=== PATIENT | male | born 1960 | race Two or more races ===

== ENCOUNTER 2020-09-25 14:25 | Inpatient (IN) | payer BC, SELFPAY ==
[~2020-09-25] VITALS: Ht 172.7 cm; Wt 71.7 kg
[2020-09-25] MEDS ORDERED: GLUCAGON INJ 1MG VIAL SC PRN (15:35)
[2020-09-25] MEDS ORDERED: GLUCOSE 4GM CHEW TABLET PO PRN (15:35)
[2020-09-25] MEDS ORDERED: PIPERACILLIN/TAZOBACTAM SOD 4.5 GM in D5W MINI-BAG PLUS 50 ML IV SCH (15:35)
[2020-09-25] MEDS ORDERED: DEXTROSE 50% 50 ML SYRINGE IV PRN (15:35)
[2020-09-25 16:00] VITALS: BP 160/88
[2020-09-25] MEDS ORDERED: CLIN300C6 PO (16:26)
[2020-09-25] MEDS ORDERED: METF500T13 PO (16:26)
[2020-09-25 16:33] VITALS: BP 160/88
[2020-09-25 16:56] LABS: BASO # 0.1 10^3/uL (0.0-0.2); BASO % 0.7 % (0.0-1.0); EOS # 0.1 10^3/uL (0.0-0.5); EOS % 0.8 % (0.0-3.0); HEMATOCRIT 42.5 % (42.0-52.0); HEMOGLOBIN 14.4 g/dl (13.5-17.5); LYMPH % 18.8 % (24.0-44.0); MEAN CORPUSCULAR HEMOGLOBIN 32.7 pg (27.0-33.0); MEAN CORPUSCULAR HGB CONC 33.9 g/dl (32.0-36.5); MEAN CORPUSCULAR VOLUME 96.6 fl (80.0-96.0); MONO # 0.8 10^3/uL (0.0-0.8); MONO % 7.8 % (2.0-8.0); NEUTROPHILS # 7.7 10^3/uL (1.5-8.5); NEUTROPHILS % 71.4 % (36.0-66.0); PLATELET COUNT, AUTOMATED 163 10^3/uL (150-450); WHITE BLOOD COUNT 10.8 10^3/uL (4.0-10.0)
--- NOTE | 2020-09-25 16:58 | HPEPDOC ---
[facility] Medical History & Physical Date of Admission Sep 25, 2020 Date of Service: Sep 25, 2020 Attending Physician: THUAN SARAH MD History and Physical CHIEF COMPLAINT: Transfer from [facility] with perianal abscess for surgical evaluation by Dr. Noriega HISTORY OF PRESENT ILLNESS: 59 yo M with DM2 on metformin, alcohol use disorder, who presented to [facility] intoxicated reporting recent heavy alcohol use, poor PO, continued use of his metformin with a chief complaint of anal pain. He actually presented to [place] ED yesterday and a CT showed a 1.2cm L perianal abscess but at the time declined admission and was prescribed PO clindmycin and then he represented today for worsening pain. On evaluation at [facility] his most notable labs were a lactic acidosis to 6.1, WBC 12.7, glucose 238, bicarb of 19 with a normal anion gap, Cr of 0.5, elevated EtOH, Hgb 14.8, platelets 182 and Covid-19 was negative. He was given 1L NS bolus and started on fluids at 250cc/hr and his alcohol level was still elevated despite last drink reportedly being yesterday night. [facility] requested surgical evaluation and spoke with Dr. Noriega who accepted his transfer to [facility] under internal medicine with surgical consult and will evaluate him tomorrow morning. In the meantime, he will be admitted to medicine and started on antibiotics, fluid resuscitation and CIWA protocol. On arrival he was hemodynamically stable, afebrile and breathing comfortably on room air. He appeared comfortable but mildly restless and complained of some anal pain. He denied recent fevers, chills, anal bleeding, discharge, diarrhea, constipation, abdominal pain, chest pain, palpitations, cough, dyspnea, nausea or emesis. PAST MEDICAL HISTORY: DM Alcohol use disorder PAST SURGICAL HISTORY: None SOCIAL HISTORY: Marital status: single Tobacco use: chronic smoker ETOH: excessive with dependence history Illicit drug use: denies FAMILY HISTORY: Father - from colon CA Mother - living, has COPD Brother - CAD s/p 5 recent stents Brother - DM ALLERGIES: Please see below. REVIEW OF SYSTEMS: 10 point ROS was completed and otherwise negative except as noted in the HPI. HOME MEDICATIONS: Please see below. PHYSICAL EXAMINATION: VITAL SIGNS: HDS, afebrile, breathing comfortably on room air and saturating well, see below for details GENERAL APPEARANCE: NAD, flushed face, mildly tremulous HEENT: NCAT, EOMI, PERRLA, dry MM CARDIOVASCULAR: Regular rhythm, tachycardic, no m/r/g LUNGS: CTAB ABDOMEN: Normoactive bowel sounds, soft, NTND, protuberant EXTREMITIES: WWP, no LE edema NEUROLOGICAL: CN 2-12 intact, moving all extremities spontaneously, mildly tremulous PSYCHIATRIC: AOx3, appears mildly restless SKIN: flushed face, erythematous groin with mildly swollen testicles and noted small firm bump on L anal border : Tender erythematous groin with mildly swollen testicles and noted small firm bump on L anal border LABORATORY DATA: Pending admission labs IMAGIN/[address] [place] [address] MICROBIOLOGY: Please see below. ASSESSMENT: 59 yo M with DM2 on metformin, alcohol use disorder, who presented to [facility] intoxicated reporting recent heavy alcohol use, poor PO, continued use of his metformin with a chief complaint of anal pain and a CT showed a perianal abscess who is being admitted as a direct transfer from [place] for surgical evaluation as well as medical management of possible sepsis, dehydration with lactic acidosis and impending alcohol withdrawal. Perianal abscess: -s/p clindamycin at [place] -Start empiric IV vanc and cipro. MRSA swab -Consult surgery, Dr. Noriega aware of transfer -pain management with tylenol PRN and may add morphine PRN depending on degree of pain reported Lactic acidosis: 2/2 combination of alcohol, dehydration and metformin use -s/p IVF boluses at [facility] -continue NS at 250cc/hr -recheck lactate Q4H +SIRS: likely driven by alcohol intoxication/withdrawal with dehydration more than he is in florid sepsis. Tachycardic, leukocytosis with lactic acidosis -BCx x 2 -UA with UCx -empiric vanc/piptazo given known perianal abscess -CIWA for alcohol withdrawal -hydration with fluids at 250cc/hr DM: -hold metformin -SSI AC/HS -FSBG AC/HS -hypoglycemia protocol DVT ppx: heparin Home Medications Scheduled Clindamycin HCl (Clindamycin HCl) 300 Mg Capsule, 300 MG PO TID Metformin HCl (Metformin HCl) 500 Mg Tablet, 500 MG PO BID A-FIB/CHADSVASC A-FIB History Current/History of A-Fib/PAF?: No Current PO Anticoag Therapy: No Age/Risk Factor Scoring CHADSVASC: CHADSVASC Response (Comments) Value Age Risk Factor Age < 65 years old 0 Gender Risk Factor Male 0 Hx of CHF No 0 Hx of HTN No 0 Hx of Stroke/TIA/or VTE No 0 Hx of Diabetes Yes 1 Hx of Vascular Disease No 0 Total 1 Treatment Treatment ordered: NONE Reason Anticoagulant not given: Not indicated/[id number] THUAN SARAH MD Sep 25, 2020 16:16
[2020-09-25 17:19] LABS: ALBUMIN 3.3 GM/DL (3.2-5.2); ALT/SGPT 25 U/L (12-78); BILIRUBIN,TOTAL 0.6 MG/DL (0.2-1.0); BLOOD UREA NITROGEN 8 MG/DL (7-18); CARBON DIOXIDE LEVEL 22 MEQ/L (21-32); CHLORIDE LEVEL 105 MEQ/L (98-107); CREATININE FOR GFR 0.61 MG/DL (0.70-1.30); GLOMERULAR FILTRATION RATE > 60.0 (>49); GLUCOSE, FASTING 144 MG/DL (70-100); POTASSIUM SERUM 3.5 MEQ/L (3.5-5.1); SODIUM LEVEL 139 MEQ/L (136-145); TOTAL PROTEIN 6.9 GM/DL (6.4-8.2)
[2020-09-25 17:23] LABS: INR 1.01; PROTHROMBIN TIME 13.5 SECONDS (12.5-14.3)
[2020-09-25 17:33] LABS: ABG BASE EXCESS -1.6 (-2.0-2.0); ABG HCO3 21.1 MEQ/L (22.0-26.0); ABG O2 SATURATION 97.1 % (95.0-99.0); ABG PARTIAL PRESSURE CO2 30.4 mmHg (35.0-45.0); ABG PARTIAL PRESSURE O2 82.3 mmHg (75.0-100.0); ABG STANDARD HCO3 23.1 MEQ/L (22.0-26.0); ABG pH (ARTERIAL) 7.459 UNITS (7.350-7.450)
[2020-09-25] MEDS: FOLIC ACID 1 MG TAB PO SCH (17:33)
[2020-09-25] MEDS: MULTIVITAMINS/MINERALS THERAP 1 TAB PO SCH (17:33)
[2020-09-25] MEDS: CIPROFLOXACIN 400 MG in IV 1 EA IV SCH (17:33)
[2020-09-25] MEDS: ACETAMINOPHEN TAB 650MG DOSE (2X325MG) PO PRN (17:33)
[2020-09-25] MEDS: NS 1,000 ML IV SCH ×2 (17:34→21:21)
[2020-09-25] MEDS: LORazepam 2 MG TAB PO PRN (17:45)
[2020-09-25] MEDS: HumaLOG INSULIN (NovoLOG) PER UNIT SC SCH ×2 (18:05→21:17)
[2020-09-25] MEDS: VANCOMYCIN HCL 1,000 MG, VIAL MATE ADAPTER 1 EACH in NS 250 ML IV SCH (18:41)
[2020-09-25] MEDS: MORPHINE 2 MG/ML 1ML VIAL (J2270) IV PRN (18:48)
[2020-09-25 19:45] VITALS: BP 137/74
[2020-09-25] MEDS: THIAMINE 100 MG TAB PO SCH (21:16)
[2020-09-25] MEDS: HEPARIN SOD (PORCINE) 5000UNITS/ML 1ML VIAL/SYRINGE SC SCH (21:17)
[2020-09-25 22:00] VITALS: BP 135/66
[2020-09-25 22:03] VITALS: BP 150/81
[2020-09-26] VITALS (9 sets, daily range): BP systolic 134–167; BP diastolic 64–90
[2020-09-26] MEDS: NS 1,000 ML IV SCH ×2 (00:30→04:26)
--- NOTE | 2020-09-26 00:58 | ECGEPIP ---
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
[2020-09-26] MEDS: MORPHINE 2 MG/ML 1ML VIAL (J2270) IV PRN ×2 (01:34→12:24)
[2020-09-26] MEDS: CIPROFLOXACIN 400 MG in IV 1 EA IV SCH ×2 (04:26→16:13)
[2020-09-26] MEDS: VANCOMYCIN HCL 1,000 MG, VIAL MATE ADAPTER 1 EACH in NS 250 ML IV SCH ×2 (05:43→18:41)
[2020-09-26 05:51] LABS: HEMATOCRIT 38.8 % (42.0-52.0); HEMOGLOBIN 13.1 g/dl (13.5-17.5); MEAN CORPUSCULAR HEMOGLOBIN 32.9 pg (27.0-33.0); MEAN CORPUSCULAR HGB CONC 33.8 g/dl (32.0-36.5); MEAN CORPUSCULAR VOLUME 97.5 fl (80.0-96.0); PLATELET COUNT, AUTOMATED 148 10^3/uL (150-450); RED BLOOD COUNT 3.98 10^6/uL (4.30-6.10); WHITE BLOOD COUNT 9.5 10^3/uL (4.0-10.0)
[2020-09-26 06:20] LABS: BLOOD UREA NITROGEN 7 MG/DL (7-18); CALCIUM LEVEL 7.6 MG/DL (8.8-10.2); CARBON DIOXIDE LEVEL 24 MEQ/L (21-32); CHLORIDE LEVEL 106 MEQ/L (98-107); CREATININE FOR GFR 0.59 MG/DL (0.70-1.30); GLOMERULAR FILTRATION RATE > 60.0 (>49); GLUCOSE, FASTING 241 MG/DL (70-100); MAGNESIUM LEVEL 1.6 MG/DL (1.8-2.4); POTASSIUM SERUM 3.6 MEQ/L (3.5-5.1); SODIUM LEVEL 136 MEQ/L (136-145)
[2020-09-26] MEDS ORDERED: FLUBLOK(EGG FREE)(QUAD)INFLUENZA VACC 0.5ML SYRINGE 18YRS & OLDER IM ONE (09:00)
[2020-09-26] MEDS ORDERED: MAG SULF 1GM/100ML (MAG RUN) 1 GM in IV 1 EA IV ONE (09:00)
[2020-09-26] MEDS ORDERED: LIDOCAINE 1% MDV 20ML VIAL As Ordered ONE (09:20)
[2020-09-26] MEDS ORDERED: LIDOCAINE 1% MDV 20ML VIAL SC ONE (09:30)
--- NOTE | 2020-09-26 09:36 | IPNPDOC ---
Text Note Date of Service The patient was seen on 09/26/20. NOTE SUBJECTIVE: -No acute complaints this morning -Perianal pain well controlled OBJECTIVE: VITAL SIGNS: HDS, afebrile, see below for details GENERAL APPEARANCE: NAD HEENT: NCAT, EOMI, PERRLA, dry MM CARDIOVASCULAR: RRR, no m/r/g LUNGS: CTAB ABDOMEN: Normoactive bowel sounds, soft, NTND, protuberant EXTREMITIES: WWP, no LE edema NEUROLOGICAL: CN 2-12 intact, moving all extremities spontaneously, no tremor noted PSYCHIATRIC: AOx3 SKIN: Mildly erythematous groin with and noted small firm bump on L perianal border LABORATORY DATA: reviewed WBC 9.5 Hgb 13.1 platelets 148 Na 136 K 3.6 Mag 1.6 (repleted) Cr 0.59 IMAGIN/[address] [place] [address] MICROBIOLOGY: Please see below. ASSESSMENT: 59 yo M with DM2 on metformin, alcohol use disorder, who presented to [facility] intoxicated reporting recent heavy alcohol use, poor PO, continued use of his metformin with a chief complaint of anal pain and a CT showed a perianal abscess who is being admitted as a direct transfer from [place] for surgical evaluation as well as medical management of possible sepsis, dehydration with lactic acidosis and impending alcohol withdrawal. Perianal abscess: -s/p clindamycin at [place] -Continue empiric IV vanc and cipro. -Consulted surgery, Dr. Noriega will see this morning -pain management with tylenol PRN and morphine PRN for severe pain Lactic acidosis: 2/2 combination of alcohol, dehydration and metformin use. No evidence of bakari sepsis. Resolved after IV fluids hydration. -s/p IVF boluses at [place] -Discontinue NS at 250cc/hr +SIRS: likely driven by alcohol intoxication/withdrawal with dehydration more than he is in florid sepsis. Tachycardic, leukocytosis with lactic acidosis, resolved. -BCx x 2, NGTD -UA bland -empiric vanc/piptazo given known perianal abscess -CIWA for alcohol withdrawal -s/p hydration DM: -hold metformin -SSI AC/HS -FSBG AC/HS -hypoglycemia protocol DVT ppx: heparin VS,Fishbone, I+O VS, Fishbone, I+O Laboratory Tests 09/25/20 16:38 09/26/20 05:37 Vital Signs Date Time Temp Pulse Resp B/P (MAP) Pulse Ox O2 Delivery O2 Flow Rate FiO2 09/26/20 06:00 99.6 72 20 153/78 (103) 96 Room Air I&O- Last 24 Hours up to 6 AM 09/26/20 06:00 Intake Total 3875 ml Output Total 500 ml Balance 3375 ml THUAN SARAH MD Sep 26, 2020 07:45
[2020-09-26] MEDS: LORazepam 2 MG TAB PO PRN ×3 (09:45→19:09)
[2020-09-26] MEDS: HEPARIN SOD (PORCINE) 5000UNITS/ML 1ML VIAL/SYRINGE SC SCH ×2 (09:56→20:47)
[2020-09-26] MEDS: HumaLOG INSULIN (NovoLOG) PER UNIT SC SCH ×4 (09:56→20:47)
[2020-09-26] MEDS: THIAMINE 100 MG TAB PO SCH ×2 (09:56→20:47)
[2020-09-26] MEDS: MULTIVITAMINS/MINERALS THERAP 1 TAB PO SCH (09:56)
[2020-09-26] MEDS: FOLIC ACID 1 MG TAB PO SCH (09:56)
--- NOTE | 2020-09-26 13:37 | CR ---
CONSULTATION DATE: 09/26/2020 REASON FOR CONSULTATION: Perianal abscess. HISTORY OF PRESENT ILLNESS: The patient is a 59-year-old male who was at [facility] on Sunday, diagnosed with a small perianal abscess, given the option for admission for IV antibiotics and he refused. He went home. He came back in again yesterday and complained of the pain and swelling getting worse. They did not have a surgeon available, so he was transferred here for surgical evaluation. He was admitted to the hospital for service overnight. I saw him this morning. He says that the pain is getting worse. He feels like the swelling is going up inside of his scrotum. No nausea or vomiting, no fevers or chills. He has never had any abscess like this in the past. PAST MEDICAL HISTORY: 1. Diabetes. 2. Alcohol abuse. PAST SURGICAL HISTORY: None. SOCIAL HISTORY: Denies drug, tobacco abuse, does drink excessive alcohol with dependent history. FAMILY HISTORY: Noncontributory. ALLERGIES: PENICILLIN AND ASPIRIN. HOME MEDICATIONS: Please see med rec. REVIEW OF SYSTEMS: Pertinent positives and negatives as stated in history of present illness. PHYSICAL EXAMINATION: General: Alert and oriented times 3, in no acute distress. Vital signs: Temperature 99.6, pulse 92, respirations 20, blood pressure 153/78, pulse oximetry 96% on room air. HEENT: Pupils equal, round and reactive to light and accommodation. Heart: S1, S2 regular rate and rhythm. Lungs: Clear to auscultation bilaterally. Abdomen: Soft, nontender, non-distended. Perianal examination: There is diffuse swelling in the perineum heading up into the base of the scrotum mostly on the left side. He had a slightly raised area on the left side of the buttock of the base of the scrotum, erythematous, no fluctuance or obvious drainage. Extremities: No clubbing, cyanosis or edema. LABORATORY DATA: White count 10.8 yesterday, 9.5 this morning, hemoglobin 13.1, platelets 148, potassium 3.6, creatinine 0.59, lactic acid 1.7, fasting glucose 241, magnesium 1.6. ASSESSMENT AND PLAN: The patient is a 59-year-old male with a perianal and perineal abscess. Recommendation at this time is to attempt bedside incision and drainage. Risks and benefits of the procedure are not limited to, but included bleeding, infection, damage to surrounding structures and need for further procedure were discussed in detail with the patient. He understands and signed consent and then the procedure was performed from the bedside. Please see the procedure note for that report. Will keep a dry dressing in place for now and I will reevaluate in the morning for further recommendations.
--- NOTE | 2020-09-26 17:57 | RO ---
OPERATIVE NOTE DATE OF OPERATION: PREOPERATIVE DIAGNOSIS: Perianal abscess. POSTOPERATIVE DIAGNOSIS: Perianal abscess. PROCEDURE: Bedside incision and drainage of perianal abscess. SURGEON: Carlos Manuel Noriega DO BLOOD BANK TECHNICIAN: None. ANESTHESIA: 10 mL of 1% lidocaine local. COMPLICATIONS: None. INDICATIONS FOR PROCEDURE: The patient is a 59-year-old male who presents with a history of a perianal abscess for the past four days, getting progressively worse on its own, has failed outpatient treatment with antibiotics. Recommendations at this time is to proceed with a bedside I&D. Risks and benefits of the procedure are not limited to but include bleeding, infection, damage to surrounding structures, need for further surgery were discussed in detail to the patient. Informed consent was obtained and procedure is planned. DESCRIPTION OF PROCEDURE: The patient's perianal area was sterilely prepped and draped with Betadine at the bedside. Next, the skin and subcutaneous tissue surrounding the most raised, fluctuant portion of it was injected with the local. Next, a 15 blade scalpel was used to make about a 1 cm incision. Once that was completed, I was able to probe the incision with a cotton-tipped applicator. There were a couple small drops of purulent fluid that came out but that was it. There were no large fluid collections and no obvious tracking anywhere underneath the skin. The wound was then covered with some dry gauze, thus ending the procedure. I advised him to keep some pressure on it for about an hour to help stop the bleeding. I will then evaluate him in the morning to see if he is improving with further recommendations to follow. PARVEZ
[2020-09-26] MEDS: ACETAMINOPHEN TAB 650MG DOSE (2X325MG) PO PRN (19:03)
[2020-09-27] VITALS (7 sets, daily range): BP systolic 140–161; BP diastolic 2–84
[2020-09-27] MEDS: ACETAMINOPHEN TAB 650MG DOSE (2X325MG) PO PRN ×2 (03:30→20:38)
[2020-09-27] MEDS: CIPROFLOXACIN 400 MG in IV 1 EA IV SCH ×2 (04:06→17:20)
[2020-09-27 05:38] LABS: HEMATOCRIT 38.1 % (42.0-52.0); HEMOGLOBIN 13.2 g/dl (13.5-17.5); MEAN CORPUSCULAR HEMOGLOBIN 32.8 pg (27.0-33.0); MEAN CORPUSCULAR HGB CONC 34.6 g/dl (32.0-36.5); MEAN CORPUSCULAR VOLUME 94.5 fl (80.0-96.0); PLATELET COUNT, AUTOMATED 142 10^3/uL (150-450); RED BLOOD COUNT 4.03 10^6/uL (4.30-6.10); WHITE BLOOD COUNT 11.4 10^3/uL (4.0-10.0)
[2020-09-27 05:56] LABS: BLOOD UREA NITROGEN 4 MG/DL (7-18); CALCIUM LEVEL 8.2 MG/DL (8.8-10.2); CARBON DIOXIDE LEVEL 22 MEQ/L (21-32); CHLORIDE LEVEL 104 MEQ/L (98-107); CREATININE FOR GFR 0.58 MG/DL (0.70-1.30); GLOMERULAR FILTRATION RATE > 60.0 (>49); GLUCOSE, FASTING 195 MG/DL (70-100); POTASSIUM SERUM 3.4 MEQ/L (3.5-5.1); SODIUM LEVEL 136 MEQ/L (136-145); VANCOMYCIN LEVEL TROUGH 6.5 UG/ML (10.0-20.0)
[2020-09-27] MEDS: VANCOMYCIN HCL 1,000 MG, VIAL MATE ADAPTER 1 EACH in NS 250 ML IV SCH (05:56)
[2020-09-27] MEDS ORDERED: VANCOMYCIN HCL 1,000 MG, VIAL MATE ADAPTER 1 EACH in NS 250 ML IV SCH ×2 (06:00→14:00)
[2020-09-27] MEDS ORDERED: MAG SULF 1GM/100ML (MAG RUN) 1 GM in IV 1 EA IV ONE (07:40)
[2020-09-27] MEDS: FOLIC ACID 1 MG TAB PO SCH (08:33)
[2020-09-27] MEDS: THIAMINE 100 MG TAB PO SCH ×2 (08:33→20:38)
[2020-09-27] MEDS: MULTIVITAMINS/MINERALS THERAP 1 TAB PO SCH (08:33)
[2020-09-27] MEDS: PERCOCET 5MG/325MG TAB PO PRN ×2 (08:33→14:28)
[2020-09-27] MEDS: HumaLOG INSULIN (NovoLOG) PER UNIT SC SCH ×4 (08:34→20:31)
[2020-09-27] MEDS: HEPARIN SOD (PORCINE) 5000UNITS/ML 1ML VIAL/SYRINGE SC SCH ×2 (08:34→20:38)
[2020-09-27] MEDS ORDERED: VANCOMYCIN HCL 500 MG in D5W MINI-BAG PLUS 100 ML IV ONE (09:00)
--- NOTE | 2020-09-27 10:07 | IPNPDOC ---
Text Note Date of Service The patient was seen on 09/27/20. NOTE Gen. surgery. Dr. Noriega. The patient is a 59-year-old male with renal abscess status post incision and drainage as per Dr. Noriega 09/26/20. This morning, the patient is resting in bed. He states the area is still painful but somewhat improved compared with yesterday. MAXIMUM TEMPERATURE 102.8 Heart rate 87, respiratory rate 20, blood pressure 143/83, 94% room air. Awake and alert. Lungs clear to auscultation anteriorly S1 and S2 regular rate and rhythm Abdomen flat soft and nontender Extremities well-perfused with no edema. Labs this a.m. indicate WBC 11.4, increased slightly hemoglobin 13.2 stable Platelets 142 Culture 2 negative for 24 hours. Blood culture 1 09/26 pending. Assessment/plan Anal abscess status post incision and drainage as per Dr. Noriega 09/26/20. Only a couple of small drops. Fluid, no large fluid collections at time of drainage. No obvious tracking. Continue dry dressing. IV Cipro/Flagyl. Dr. Noriega to examine further, further recommendations pending his review. VS,Fishbone, I+O VS, Fishbone, I+O Laboratory Tests 09/27/20 05:23 Vital Signs Date Time Temp Pulse Resp B/P (MAP) Pulse Ox O2 Delivery O2 Flow Rate FiO2 09/27/20 08:39 85 140/2 09/27/20 08:33 18 09/27/20 06:00 99.3 94 Room Air I&O- Last 24 Hours up to 6 AM 09/27/20 06:00 Intake Total 1260 ml Output Total 1200 ml Balance 60 ml Rosalinda Alvarado Sep 27, 2020 10:07
--- NOTE | 2020-09-27 10:43 | IPNPDOC ---
Text Note Date of Service The patient was seen on 09/27/20. NOTE SUBJECTIVE: -Fever overnight, also with active CIWAs -had bedside I&D with Dr. Noriega on 09/26/2020 without much output OBJECTIVE: VITAL SIGNS: HDS, afebrile, see below for details GENERAL APPEARANCE: NAD HEENT: NCAT, EOMI, PERRLA, dry MM CARDIOVASCULAR: RRR, no m/r/g LUNGS: CTAB ABDOMEN: Normoactive bowel sounds, soft, NTND, protuberant EXTREMITIES: WWP, no LE edema NEUROLOGICAL: CN 2-12 intact, moving all extremities spontaneously, no tremor noted PSYCHIATRIC: AOx3 : Worsened scrotal edema with erythema, continues to have 1cm bump on L perianal border. LABORATORY DATA: reviewed WBC 11.4 IMAGIN/[address] [place] [address] MICROBIOLOGY: Please see below. ASSESSMENT: 59 yo M with DM2 on metformin, alcohol use disorder, who presented to [facility] intoxicated reporting recent heavy alcohol use, poor PO, continued use of his metformin with a chief complaint of anal pain and a CT showed a perianal abscess who is being admitted as a direct transfer from [place] for surgical evaluation as well as medical management of possible sepsis, dehydration with lactic acidosis and alcohol withdrawal. Perianal abscess: -s/p clindamycin at [place] -Continue empiric IV vanc and cipro, day 3, add flagyl -Consulted surgery, Dr. Noriega performed bedside I&D on 09/26 -pain management with tylenol PRN for mild pain and Percocet PRN for severe pain Lactic acidosis: 2/2 combination of alcohol, dehydration and metformin use. No evidence of bakari sepsis. Resolved after IV fluids hydration. -s/p IVF boluses at [place] -s/p fluids +SIRS: likely driven by alcohol intoxication/withdrawal with dehydration more than he was in florid sepsis. However now had fevers overnight, redrew BCx, continued vanc/cipro -BCx x 2, NGTD -UA bland -Continue empiric vanc/cipro given known perianal abscess -CIWA for alcohol withdrawal -s/p hydration DM: -hold metformin -SSI AC/HS -FSBG AC/HS -hypoglycemia protocol DVT ppx: heparin VS,Fishbone, I+O VS, Fishbone, I+O Laboratory Tests 09/27/20 05:23 Vital Signs Date Time Temp Pulse Resp B/P (MAP) Pulse Ox O2 Delivery O2 Flow Rate FiO2 09/27/20 06:00 99.3 87 20 143/83 (103) 94 Room Air I&O- Last 24 Hours up to 6 AM 09/27/20 06:00 Intake Total 1260 ml Output Total 1200 ml Balance 60 ml THUAN SARAH MD Sep 27, 2020 07:44
[2020-09-27] MEDS ORDERED: POTASSIUM CHLORIDE 10 MEQ SR TABLET PO ONE (11:00)
[2020-09-27] MEDS: metroNIDAZOLE 500 MG in IV 1 EA IV SCH ×2 (12:31→20:38)
[2020-09-28] VITALS (8 sets, daily range): BP systolic 125–159; BP diastolic 68–81
[2020-09-28] MEDS: metroNIDAZOLE 500 MG in IV 1 EA IV SCH ×3 (04:20→21:08)
[2020-09-28] MEDS: PERCOCET 5MG/325MG TAB PO PRN ×3 (04:22→19:07)
[2020-09-28] MEDS: CIPROFLOXACIN 400 MG in IV 1 EA IV SCH ×2 (05:41→19:00)
[2020-09-28 06:24] LABS: HEMOGLOBIN 13.4 g/dl (13.5-17.5); MEAN CORPUSCULAR HGB CONC 34.4 g/dl (32.0-36.5); MEAN CORPUSCULAR VOLUME 96.1 fl (80.0-96.0); PLATELET COUNT, AUTOMATED 143 10^3/uL (150-450); RED BLOOD COUNT 4.06 10^6/uL (4.30-6.10); WHITE BLOOD COUNT 11.8 10^3/uL (4.0-10.0)
[2020-09-28 06:52] LABS: BLOOD UREA NITROGEN 5 MG/DL (7-18); CALCIUM LEVEL 8.2 MG/DL (8.8-10.2); CARBON DIOXIDE LEVEL 24 MEQ/L (21-32); CHLORIDE LEVEL 104 MEQ/L (98-107); CREATININE FOR GFR 0.55 MG/DL (0.70-1.30); GLOMERULAR FILTRATION RATE > 60.0 (>49); GLUCOSE, FASTING 153 MG/DL (70-100); POTASSIUM SERUM 3.8 MEQ/L (3.5-5.1); SODIUM LEVEL 136 MEQ/L (136-145)
[2020-09-28] MEDS: FOLIC ACID 1 MG TAB PO SCH (08:07)
[2020-09-28] MEDS: MULTIVITAMINS/MINERALS THERAP 1 TAB PO SCH (08:07)
[2020-09-28] MEDS: HEPARIN SOD (PORCINE) 5000UNITS/ML 1ML VIAL/SYRINGE SC SCH (08:07)
[2020-09-28] MEDS: THIAMINE 100 MG TAB PO SCH (08:07)
[2020-09-28] MEDS: HumaLOG INSULIN (NovoLOG) PER UNIT SC SCH ×4 (08:09→20:16)
--- NOTE | 2020-09-28 13:17 | IPNPDOC ---
Text Note Date of Service The patient was seen on 09/28/20. NOTE No acute events overnight. He feels like the pain and swelling are still getting worse. Labs and vitals are stable. VSSAF NAD perineum - there is swelling and erythema in the perineum extending into the scrotum. No signs of any fluctuance or drainage. labs - below A) 59y/o male with perineal abscess s/p bedside I+D. P) reg diet abx possible urology consult US pending will follow David Noriega DO VS,Aditya, I+O VS, Fishbone, I+O Laboratory Tests 09/28/20 06:00 Vital Signs Date Time Temp Pulse Resp B/P (MAP) Pulse Ox O2 Delivery O2 Flow Rate FiO2 09/28/20 12:13 18 09/28/20 06:00 99.6 81 135/73 (93) 95 Room Air I&O- Last 24 Hours up to 6 AM 09/28/20 06:00 Intake Total 1450 ml Output Total 1675 ml Balance -225 ml RADHA NORIEGA DO Sep 28, 2020 13:17
--- NOTE | 2020-09-28 13:18 | REP ---
INDICATION: scrotum and perineum for abscess fluid collection?. Perianal abscess, scrotal pain. COMPARISON: None. TECHNIQUE: Bilateral high-resolution scrotal sonography. FINDINGS: Bilateral scrotal parenchyma is homogeneous. No intratesticular mass lesion is seen on either side. Right testis measures 3.9 x 2.0 x 2.4 cm. Left testicular dimensions are 4.2 x 2.0 x 2.5 cm. There are tiny right epididymal cyst head cyst is seen. The left spermatic cord is somewhat hyperemic and hyperechoic consistent with inflammation. There is scrotal wall thickening inferiorly. No intrascrotal abscess is seen. No intra testicular abscess is observed. Testicular Doppler flow is present bilaterally. Resistive indices are 0.54 and 0.70 on the right and left respectively by Doppler. The inferior and lateral to the scrotum on the left side is an 8.9 x 3.4 x 2.7 cm hypoechoic area containing fluid and some air bubbles consistent with abscess. IMPRESSION: Peroneal abscess inferior and left lateral to the scrotum measuring 8.9 x 3.4 x 2.7 cm.. No intrascrotal abscess or abnormal fluid collection seen. No intratesticular mass seen. <Electronically signed by Joey Guajardo > 09/28/20 [id number]
--- NOTE | 2020-09-28 14:52 | IPNPDOC ---
Subjective Date Seen The patient was seen on 09/28/20. Subjective Chief Complaint/HPI Mr. Wu is a 59 year old male transferred from [place] with diabetes mellitus who presents with peroneal pain and found to have peroneal abscess. Last night, he had another fever. This morning, he continues to have peroneal pain. Denies chest pain or dyspnea. General surgery, Dr. Noriega, evaluated patient. He ordered for US scrotal which demonstrated abscess inferior and left lateral to the scrotum measuring 8.9 x 3.4 x 2.7 cm. I reached out to Dr. Noriega who plans to take patient down to the OR this evening. Objective Physical Examination General Exam: Positive: Alert, Cooperative Eye Exam: Positive: EOMI Neck Exam: Positive: Supple Chest Exam: Positive: Clear to auscultation Heart Exam: Positive: Rate Normal, Regular Rhythm Abdomen Exam: Positive: Normal bowel sounds, Soft; Negative: Tenderness Male Exam: Positive: Edema (Scrotal), Erythema (Scrotal) Extremity Exam: Negative: Edema Neuro Exam: Positive: Normal Speech Psych Exam: Positive: Mental status NL, Mood NL Assessment /Plan Assessment Mr. Wu is a 59 year old male transferred from [place] with diabetes mellitus who presents with peroneal pain and found to have peroneal abscess. US scrotal demonstrated abscess inferior and left lateral to the scrotum measuring 8.9 x 3.4 x 2.7 cm. Planning to go to the OR this evening. Otherwise, continues on ciprofloxacin and metronidazole. Plan/VTE VTE Prophylaxis Ordered?: Yes Plan 1. Peroneal abscess -Inferior and left lateral to the scrotum measuring 8.9 x 3.4 x 2.7 cm -General surgery following, recommendations appreciated -Planning to go to OR this evening -MRSA negative. On ciprofloxacin and metronidazole 2. Alcohol use disorder -CIWA with PRN lorazepam -Continue multivitamin, thiamine, and folic acid 3. Diabetes mellitus -Hold metformin -Sliding scale insulin -Resume carbohydrate consistent diet after surgery 4. DVT ppx -Holding heparin for surgery -Restart heparin after surgery Disposition: Pending surgery, bacterial identification, and clinical improvement VS, I&O, 24H, Fishbone Vital Signs/I&O Vital Signs Date Time Temp Pulse Resp B/P (MAP) Pulse Ox O2 Delivery O2 Flow Rate FiO2 09/28/20 14:00 98.9 88 18 137/74 (95) 95 Room Air I&O- Last 24 Hours up to 6 AM 09/28/20 06:00 Intake Total 1450 ml Output Total 1675 ml Balance -225 ml Laboratory Data 24H LABS Laboratory Tests 2 09/27/20 17:11: Bedside Glucose (Misc Panel) 94 09/27/20 20:25: Bedside Glucose (Misc Panel) 177H 09/28/20 06:00: Nucleated Red Blood Cells % (auto) 0.0, Anion Gap 8, Glomerular Filtration Rate > 60.0, Calcium Level 8.2L 09/28/20 11:29: Bedside Glucose (Misc Panel) 181H CBC/BMP Laboratory Tests 09/28/20 06:00 Microbiology Microbiology 09/26/20 Blood Culture - Preliminary, Resulted No growth after 24 hours . All specim... 09/26/20 Gastrointestinal Tract Panel (PCR) - Final, Complete 09/25/20 Blood Culture - Preliminary, Resulted No Growth after 48 hours. All Specime... 09/25/20 Blood Culture - Preliminary, Resulted No Growth after 48 hours. All Specime... TAYLOR CANTRELL DO Sep 28, 2020 14:52
[2020-09-28] MEDS ORDERED: BUPIVACAINE/EPIN 0.25% 30 ML VIAL As Ordered ONE (15:03)
--- NOTE | 2020-09-28 15:47 | IPNPDOC ---
Text Note Date of Service The patient was seen on 09/28/20. NOTE US shows a perineal abscess. Plan is for I+D in the OR today. Consent is signed and the procedure is planned. A) 59y/o male with perineal abscess s/p bedside I+D. P) OR for I+D today. no changes to H+P. David Noriega DO VS,Aditya, I+O VS, Ariadnee, I+O Laboratory Tests 09/28/20 06:00 Vital Signs Date Time Temp Pulse Resp B/P (MAP) Pulse Ox O2 Delivery O2 Flow Rate FiO2 09/28/20 14:00 98.9 88 18 137/74 (95) 95 Room Air I&O- Last 24 Hours up to 6 AM 09/28/20 06:00 Intake Total 1450 ml Output Total 1675 ml Balance -225 ml RADHA NORIEGA DO Sep 28, 2020 15:47
[2020-09-28] MEDS ORDERED: propofoL 200 MG/20 ML VIAL As Ordered ONE (16:33)
[2020-09-28] MEDS ORDERED: MIDAZOLAM INJ 2MG/2ML VIAL (J2250 PER 1MG) As Ordered ONE (16:33)
[2020-09-28] MEDS ORDERED: CHLOROPROCAINE PRES. FREE 2% 20ML VIAL As Ordered ONE (16:33)
[2020-09-28] MEDS ORDERED: fentaNYL 100 MCG/2 ML INJECTION (J3010) As Ordered ONE (16:33)
[2020-09-28] MEDS ORDERED: fentaNYL 100 MCG/2 ML INJECTION (J3010) IV PRN (17:05)
[2020-09-28] MEDS ORDERED: ONDANSETRON 4MG/2ML VIAL IV PRN (17:05)
[2020-09-28] MEDS ORDERED: HYDROMORPHONE HCL 0.5 MG/ 0.5 ML SYRINGE (J1170 PER 1) IV PRN (17:05)
[2020-09-29 02:00] VITALS: BP 134/70
[2020-09-29] MEDS: metroNIDAZOLE 500 MG in IV 1 EA IV SCH ×3 (04:15→20:51)
[2020-09-29] MEDS: PERCOCET 5MG/325MG TAB PO PRN ×2 (04:16→10:00)
[2020-09-29] MEDS: CIPROFLOXACIN 400 MG in IV 1 EA IV SCH ×2 (05:36→17:32)
[2020-09-29 06:00] VITALS: BP 135/71
[2020-09-29 06:06] LABS: HEMATOCRIT 37.4 % (42.0-52.0); HEMOGLOBIN 12.6 g/dl (13.5-17.5); MEAN CORPUSCULAR HEMOGLOBIN 32.3 pg (27.0-33.0); MEAN CORPUSCULAR HGB CONC 33.7 g/dl (32.0-36.5); MEAN CORPUSCULAR VOLUME 95.9 fl (80.0-96.0); PLATELET COUNT, AUTOMATED 174 10^3/uL (150-450); WHITE BLOOD COUNT 8.9 10^3/uL (4.0-10.0)
[2020-09-29 06:27] LABS: BLOOD UREA NITROGEN 7 MG/DL (7-18); CALCIUM LEVEL 8.1 MG/DL (8.8-10.2); CARBON DIOXIDE LEVEL 24 MEQ/L (21-32); CHLORIDE LEVEL 104 MEQ/L (98-107); CREATININE FOR GFR 0.48 MG/DL (0.70-1.30); GLOMERULAR FILTRATION RATE > 60.0 (>49); GLUCOSE, FASTING 145 MG/DL (70-100); MAGNESIUM LEVEL 1.8 MG/DL (1.8-2.4); POTASSIUM SERUM 3.8 MEQ/L (3.5-5.1); SODIUM LEVEL 138 MEQ/L (136-145)
--- NOTE | 2020-09-29 07:58 | RO ---
OPERATIVE NOTE DATE OF OPERATION: 09/28/2020 PREOPERATIVE DIAGNOSIS: Left perianal abscess. POSTOPERATIVE DIAGNOSIS: Left perianal abscess. PROCEDURE: Incision and drainage of perianal abscess SURGEON: Carlos Manuel Noriega DO STEEL HANGER: None. ANESTHESIA: Spinal with sedation. ESTIMATED BLOOD LOSS: 2 ml COMPLICATIONS: None. INDICATION FOR PROCEDURE: The patient is a 59-year-old male who presents with perianal abscess that failed bedside drainage. Recommendation for same day OR for better visualization and incision and drainage. Risks and benefits of the procedure not limited to, but included bleeding, infection, damage to surrounding structures and need for further surgery were discussed in detail with the patient. Consent was obtained, procedure was planned. DESCRIPTION OF PROCEDURE: The patient was brought back to the operating room 2. After sufficient sedation, the perianal area was sterilely prepped and draped with Betadine. Next, time-out was done to confirm proper patient and proper procedure. Follow that, a 1 cm incision was made through the previous incision site in the left perianal area. Upon doing so, a large amount of purulent fluid was drained. This was aspirated out. The wound was then probed to make sure it did not tract anywhere. After doing so, the wound was irrigated with normal saline and then packed with 0.5 inch Iodoform gauze. Once this was completed, the Iodoform was covered with 4 x 4 and tape. The patient tolerated the procedure well and sent to the PACU in stable condition.
--- NOTE | 2020-09-29 09:15 | IPNPDOC ---
Text Note Date of Service The patient was seen on 09/29/20. NOTE Gen. surgery. Dr. Noriega. The patient is a 59-year-old male with perianal abscess status post incision and drainage in the OR as per Dr. Noriega 09/28/20. This morning, the patient is resting in bed. He states the scrotal area is still very swollen, but overall his pain has been controlled. Afebrile VSS Awake and alert. Extremities well-perfused with no edema. Leukocytosis resolved hemoglobin 12.6 Platelets 174 Assessment/plan Left Perianal abscess status post incision and drainage as per Dr. Noriega 09/28/20. IV Cipro/Flagyl. The patient is reviewed by Dr. Noriega this morning. Status post packing of the area postoperatively 09/28. Recommendation remove 1-2in of packing from wound daily. Dry dressing. Continue to keep area clean and dry. Continue to monitor. VS,Fishbone, I+O VS, Fishbone, I+O Laboratory Tests 09/29/20 05:31 Vital Signs Date Time Temp Pulse Resp B/P (MAP) Pulse Ox O2 Delivery O2 Flow Rate FiO2 09/29/20 06:00 99.0 70 18 135/71 (92) 96 Nasal Cannula 2.0 I&O- Last 24 Hours up to 6 AM 09/29/20 05:59 Intake Total 1550 ml Output Total 1102 ml Balance 448 ml Rosalinda Alvarado Sep 29, 2020 09:15
[2020-09-29] MEDS: MULTIVITAMINS/MINERALS THERAP 1 TAB PO SCH (09:59)
[2020-09-29] MEDS: FOLIC ACID 1 MG TAB PO SCH (09:59)
[2020-09-29 10:00] VITALS: BP 156/128
[2020-09-29] MEDS: HumaLOG INSULIN (NovoLOG) PER UNIT SC SCH ×4 (10:00→21:00)
[2020-09-29] MEDS ORDERED: ONDANSETRON 4MG/2ML VIAL IV PRN (10:40)
[2020-09-29] MEDS ORDERED: PERCOCET 5MG/325MG TAB PO ONE (10:40)
[2020-09-29 14:00] VITALS: BP 129/69
--- NOTE | 2020-09-29 15:13 | IPNPDOC ---
Subjective Date Seen The patient was seen on 09/29/20. Subjective Chief Complaint/HPI Mr. Wu is a 59 year old male transferred from [place] with diabetes mellitus who presents with peroneal pain and found to have peroneal abscess. Yesterday, general surgery took patient down to the OR for abscess drainage. They were able to drain large amount of purulent fluid. There was no tract. Patient returned to the floor. This morning, denies chest pain or dyspnea. Still has peroneal pain and scrotum still large, swollen, red, and tender. Left seemed more tender than right. I reached out to urology, Dr. Simental, for consultation who will see later in the day. Objective Physical Examination General Exam: Positive: Alert, Cooperative Eye Exam: Positive: EOMI Neck Exam: Positive: Supple Chest Exam: Positive: Clear to auscultation Heart Exam: Positive: Rate Normal, Regular Rhythm Abdomen Exam: Positive: Normal bowel sounds, Soft; Negative: Tenderness Male Exam: Positive: Edema (Scrotal), Erythema (Scrotal) Extremity Exam: Negative: Edema Neuro Exam: Positive: Normal Speech Psych Exam: Positive: Mental status NL, Mood NL Assessment /Plan Assessment Mr. Wu is a 59 year old male transferred from [place] with diabetes mellitus who presents with peroneal pain and found to have peroneal abscess. US scrotal demonstrated abscess inferior and left lateral to the scrotum measuring 8.9 x 3.4 x 2.7 cm. Patient was taken to the OR the evening of 09/28/[address] Noriega. Drained large amount of pus. No culture was obtained. Otherwise, still have scrotal swelling, erythema, and tenderness. Urology consulted. Continues on ciprofloxacin and metronidazole. Plan/VTE VTE Prophylaxis Ordered?: Yes Plan 1. Peroneal abscess -Inferior and left lateral to the scrotum measuring 8.9 x 3.4 x 2.7 cm -General surgery following, recommendations appreciated -Taken down to the OR on 09/28/2020 for I&D. Drained pus, no culture taken -MRSA negative. On ciprofloxacin and metronidazole 2. Scrotal inflammation -Possible orchitis vs scrotal cellulitis -MRSA negative -Continues on ciprofloxacin and metronidazole -Urology consulted, recommendations appreciated 3. Alcohol use disorder -CIWA with PRN lorazepam -Continue multivitamin, thiamine, and folic acid 4. Diabetes mellitus -Hold metformin -Sliding scale insulin -Resume carbohydrate consistent diet after surgery 5. DVT ppx -Restart heparin this evening Disposition: Pending urology recommendations and clinical improvement VS, I&O, 24H, Fishbone Vital Signs/I&O Vital Signs Date Time Temp Pulse Resp B/P (MAP) Pulse Ox O2 Delivery O2 Flow Rate FiO2 09/29/20 11:26 18 09/29/20 10:00 98.5 75 156/128 (137) 98 Nasal Cannula 2.0 I&O- Last 24 Hours up to 6 AM 09/29/20 06:00 Intake Total 1550 ml Output Total 1102 ml Balance 448 ml Laboratory Data 24H LABS Laboratory Tests 2 09/28/20 17:05: Bedside Glucose (Misc Panel) 108 09/28/20 20:15: Bedside Glucose (Misc Panel) 179H 09/29/20 05:31: Nucleated Red Blood Cells % (auto) 0.0, Anion Gap 10, Glomerular Filtration Rate > 60.0, Calcium Level 8.1L, Magnesium Level 1.8 09/29/20 11:35: Bedside Glucose (Misc Panel) 188H CBC/BMP Laboratory Tests 09/29/20 05:31 Microbiology Microbiology 09/26/20 Blood Culture - Preliminary, Resulted No Growth after 48 hours. All Specime... 09/26/20 Gastrointestinal Tract Panel (PCR) - Final, Complete 09/25/20 Blood Culture - Preliminary, Resulted No Growth after 72 hours. All specime... 09/25/20 Blood Culture - Preliminary, Resulted No Growth after 72 hours. All specime... TAYLOR CANTRELL 24, 2021 15:14
--- NOTE | 2020-09-29 17:41 | SMCUROLCON ---
Urology Consultation General Date of Consultation 09/29/20 Reason For Consultation This patient is seen for Perianal Abscess and scrotal inflammation History of Present Illness The patient is a 59-year-old male with a history of perianal discomfort for several days. He finally presented to the emergency room where he was noted to have a perianal abscess. He was taken to the operating room for drainage. After this and despite antibiotics he continued to have an inflamed scrotum and therefore urology was called. Patient denies any urinary problems but states that he has had 2 infections in the scrotum or perineal area in the past. The last one was about 5 years ago. He denies any urgency, frequency or dysuria. He does have a past history of heavy alcohol abuse and type 2 diabetes. Past Medical History Medical History Type 2 diabetes Chronic alcohol abuse Surgical Hstory None Social History * Smoker: current smoker Alcohol: heavy Drugs: denies Medications Current Medications Current Medications Medications (Trade) Dose Ordered Sig/[place] Route PRN Reason Start Time Stop Time Status Last Admin Dose Admin Acetaminophen (Tylenol Tab) 650 mg Q4H PRN PO PAIN OR FEVER 09/25/20 15:35 09/27/20 20:38 Ciprofloxacin 400 mg/IV Miscellaneous Supplies 200 ml @ 200 mls/hr Q12H IV 09/25/20 17:00 09/29/20 05:36 Dextrose (Dextrose 50%) 25 ml ASDIRECTED PRN IV SEE LABEL COMMENTS 09/25/20 15:35 Fentanyl Citrate (Sublimaze) 25 mcg Q5MP PRN IV PAIN LEVEL 5-10 09/28/20 17:05 09/28/20 18:05 DC Folic Acid (Folic Acid) 1 mg DAILY PO 09/25/20 09:00 09/29/20 09:59 Glucagon (Glucagon) 1 mg ASDIRECTED PRN SC SEE LABEL COMMENTS 09/25/20 15:35 Glucose (Glucose) 16 GM ASDIRECTED PRN PO SEE LABEL COMMENTS 09/25/20 15:35 Heparin Sodium (Porcine) (Heparin) 5,000 units Q12H SC 09/25/20 21:00 Hold 09/28/20 08:07 Home Med (Med Rec Complete!) ASDIRECTED XX 09/25/20 16:35 09/25/20 16:34 DC Hydromorphone HCl (Dilaudid) 0.2 mg Q5MP PRN IV PAIN LEVEL 4-7 09/28/20 17:05 09/28/20 18:05 DC Insulin Human Lispro (HumaLOG INSULIN) SEE PROTOCOL TABLE AC SC 09/25/20 17:30 09/29/20 10:00 Insulin Human Lispro (HumaLOG INSULIN) SEE PROTOCOL TABLE QHS SC 09/25/20 21:00 09/25/20 21:17 Lorazepam (Ativan) 2 mg ASDIRECTED PRN PO SEE PROTOCOL 09/25/20 16:10 09/29/20 17:21 DC 09/26/20 19:09 Metronidazole 500 mg/IV Miscellaneous Supplies 100 ml @ 100 mls/hr Q8H IV 09/27/20 12:00 09/29/20 13:00 Morphine Sulfate (Morphine Sulfate Inj) 2 mg Q4HP PRN IV MODERATE PAIN (PS 5-7) 09/25/20 18:20 09/27/20 07:44 DC 09/26/20 12:24 Multivitamins (Theragram-M) 1 tab DAILY PO 09/25/20 09:00 09/29/20 09:59 Ondansetron HCl (ZOFRAN INJection) 4 mg Q4HP PRN IV NAUSEA OR VOMITING 09/28/20 17:05 09/28/20 18:05 DC Ondansetron HCl (ZOFRAN INJection) 4 mg Q6HP PRN IV NAUSEA OR VOMITING 09/29/20 10:40 09/29/20 10:55 Oxycodone/ Acetaminophen (Percocet 5mg/ 325mg Tablet) 1 tab Q4HP PRN PO severe pain 09/27/20 07:40 09/29/20 10:00 Piperacillin Sod/ Tazobactam Sod 4.5 gm/Dextrose 50 ml @ 50 mls/hr Q6H IV 09/25/20 15:35 09/25/20 16:49 DC Sodium Chloride 1,000 ml @ 250 mls/hr Q4H IV 09/25/20 16:30 09/26/20 07:45 DC 09/26/20 04:26 Thiamine HCl (Thiamine HCl) 100 mg BID PO 09/25/20 21:00 09/28/20 20:59 DC 09/28/20 08:07 Vancomycin HCl 1000 mg/IV Miscellaneous Supplies 1 each/ Sodium Chloride 270 ml @ 270 mls/hr Q12H IV 09/25/20 18:00 09/27/20 06:15 DC 09/27/20 05:56 Vancomycin HCl 1000 mg/IV Miscellaneous Supplies 1 each/ Sodium Chloride 270 ml @ 270 mls/hr Q8H IV 09/27/20 06:00 09/27/20 06:32 DC Vancomycin HCl 1000 mg/IV Miscellaneous Supplies 1 each/ Sodium Chloride 270 ml @ 270 mls/hr Q8H IV 09/27/20 14:00 09/27/20 10:44 DC Allergies Allergies: Coded Allergies: Penicillins (Verified Allergy, Unknown, CHILDHOOD PENICILLIN ALLERGY, 09/25/20) aspirin (Verified Adverse Reaction, Unknown, HIVES, 09/25/20) Review of Systems General: Reports: Normal Appetite; Denies: Fatigue, Malaise Constitutional: Denies: Fever, Chills, Sweats, Weakness, Malaise Eyes: Denies: Pain, Vision change ENT: Denies: Head Aches, Sore Throat, Epistaxis Skin: Denies: Rash, Lesions, Breakdown, Nail Changes Pulmonary: Denies: Dyspnea, Cough Cardiovascular: Denies Chest Pain, Denies Palpitations Gastrointestinal: Denies: Nausea, Vomiting, Abdominal Pain Genitourinary: Denies: Dysuria, Frequency, Incontinence, Hematuria Hematologic: Denies: Bruising, Bleeding Excessively Endocrine: Denies: Polydipsia, Polyphagia, Polyuria Musculoskeletal: Denies: Neck Pain, Back Pain Neurological: Denies: Weakness, Numbness, Incoordination, Change in Speech Psych: Reports: Mood Normal; Denies: Anxiety, Depression Physical Examination General Exam: Cooperative, Mild Distress EYE EXAM: PERRLA, Conjunctiva & lids normal, EOMI; No: Sclera icteric ENT EXAM: Atraumatic, Mucous membr. moist/pink, Pharynx Normal Chest Exam: Clear to auscultation, Normal air movement Abdomen Exam: Normal Bowel Sounds, Soft; No: Tenderness, Hepatospenomegaly Male Exam Penis is circumcised. The scrotum appears normal in size, but the left side is very hyperemic area and the spermatic cord is enlarged and indurated. No fluctuance can be identified. Extremity Exam: Normal Pulses; No: Clubbing, Cyanosis, Edema Neuro Exam: Normal Gait, Normal Speech, Cranial Nerves 3-12 NL, Reflexes 2+ Psych Exam: Mental status NL, Mood NL, Oriented x 3 Vital Signs/I&O Vital Signs Date Time Temp Pulse Resp B/P (MAP) Pulse Ox O2 Delivery O2 Flow Rate FiO2 09/29/20 14:00 98.4 63 18 129/69 (89) 95 Room Air I&O- Last 24 Hours up to 6 AM 09/29/20 06:00 Intake Total 1550 ml Output Total 1102 ml Balance 448 ml Laboratory Data 24H Labs Laboratory Tests 2 09/28/20 20:15: Bedside Glucose (Misc Panel) 179H 09/29/20 05:31: Nucleated Red Blood Cells % (auto) 0.0, Anion Gap 10, Glomerular Filtration Rate > 60.0, Calcium Level 8.1L, Magnesium Level 1.8 09/29/20 11:35: Bedside Glucose (Misc Panel) 188H 09/29/20 16:33: Bedside Glucose (Misc Panel) 169H CBC/BMP Laboratory Tests 09/29/20 05:31 Microbiology Microbiology 09/26/20 Blood Culture - Preliminary, Resulted No Growth after 48 hours. All Specime... 09/26/20 Gastrointestinal Tract Panel (PCR) - Final, Complete 09/25/20 Blood Culture - Preliminary, Resulted No Growth after 72 hours. All specime... 09/25/20 Blood Culture - Preliminary, Resulted No Growth after 72 hours. All specime... Assessment Epididymitis Choroidal inflammation Perineal and perianal abscess Plan The epididymitis and scrotal inflammation should resolve with elevation and antibiotics. At this point I do not think that surgical intervention is of any value but we will need to keep repeating ultrasounds of the scrotal area to check force testicular viability. There is always a possibility that the patient may need orchiectomy. Cultures are pending at this point and will certainly be modified according to the results. Thank you for allowing me to take part in this patient's care and and I will continue to follow with you MERLE LUQUE MD Sep 29, 2020 17:41
[2020-09-29 22:00] VITALS: BP 135/76
[2020-09-29] MEDS: HEPARIN SOD (PORCINE) 5000UNITS/ML 1ML VIAL/SYRINGE SC SCH (22:54)
[2020-09-30] MEDS: metroNIDAZOLE 500 MG in IV 1 EA IV SCH ×3 (03:21→20:00)
[2020-09-30] MEDS: CIPROFLOXACIN 400 MG in IV 1 EA IV SCH ×2 (04:02→17:26)
[2020-09-30 06:00] VITALS: BP 132/74
[2020-09-30 06:35] LABS: HEMATOCRIT 38.1 % (42.0-52.0); HEMOGLOBIN 13.1 g/dl (13.5-17.5); MEAN CORPUSCULAR HEMOGLOBIN 33.1 pg (27.0-33.0); MEAN CORPUSCULAR HGB CONC 34.4 g/dl (32.0-36.5); MEAN CORPUSCULAR VOLUME 96.2 fl (80.0-96.0); PLATELET COUNT, AUTOMATED 180 10^3/uL (150-450); RED BLOOD COUNT 3.96 10^6/uL (4.30-6.10); WHITE BLOOD COUNT 7.7 10^3/uL (4.0-10.0)
[2020-09-30 06:46] LABS: BLOOD UREA NITROGEN 5 MG/DL (7-18); CALCIUM LEVEL 8.3 MG/DL (8.8-10.2); CARBON DIOXIDE LEVEL 26 MEQ/L (21-32); CHLORIDE LEVEL 103 MEQ/L (98-107); CREATININE FOR GFR 0.55 MG/DL (0.70-1.30); GLOMERULAR FILTRATION RATE > 60.0 (>49); GLUCOSE, FASTING 170 MG/DL (70-100); POTASSIUM SERUM 3.6 MEQ/L (3.5-5.1); SODIUM LEVEL 136 MEQ/L (136-145)
[2020-09-30 08:21] VITALS: BP 134/68
[2020-09-30] MEDS: HumaLOG INSULIN (NovoLOG) PER UNIT SC SCH ×4 (08:22→20:03)
--- NOTE | 2020-09-30 09:17 | ECGEPIP ---
[facility] Test Date: 2020-09-29 Pat Name: MARIA ISABEL VARGHESE Department: Room: [place] [address] Gender: Male Nip Wrapper: RYAN : 1960 Requested By: TAYLOR Woods Order Number: [id number] Reading MD: Otis High Measurements Intervals [place] Rate: 68 P: 52 [place]: 134 QRS: 32 QRSD: 84 T: 51 QT: 412 QTc: 438 Interpretive Statements Normal sinus rhythm Nonspecific T wave abnormality No significant change when compared to prior tracing of 09/25/2020 Electronically Signed on 09-30-2020 9:17:36 EDT by Otis High
--- NOTE | 2020-09-30 09:48 | IPNPDOC ---
Text Note Date of Service The patient was seen on 09/30/20. NOTE Gen. surgery. Dr. Noriega. The patient is a 59-year-old male with perianal abscess status post incision and drainage in the OR as per Dr. Noriega 09/28/20. This morning, the patient is resting in bed. He states the scrotal area is still swollen but notices improvement, pain has been improved. Afebrile VSS Awake and alert. Extremities well-perfused with no edema. Leukocytosis resolved hemoglobin 13.1 Assessment/plan Left Perianal abscess status post incision and drainage as per Dr. Noriega 09/28/20. IV Cipro/Flagyl. Status post packing of the area postoperatively 09/28. Continue wound care. Continue to keep area clean and dry. Continue to monitor. VS,Fishbone, I+O VS, Fishbone, I+O Laboratory Tests 09/30/20 05:49 Vital Signs Date Time Temp Pulse Resp B/P (MAP) Pulse Ox O2 Delivery O2 Flow Rate FiO2 09/30/20 08:21 98.2 60 16 134/68 (90) 99 Room Air 09/29/20 14:00 I&O- Last 24 Hours up to 6 AM 09/30/20 05:59 Intake Total 1120 ml Output Total 1545 ml Balance -425 ml Rosalinda Alvarado Sep 30, 2020 09:47
[2020-09-30] MEDS: MULTIVITAMINS/MINERALS THERAP 1 TAB PO SCH (10:21)
[2020-09-30] MEDS: FOLIC ACID 1 MG TAB PO SCH (10:21)
[2020-09-30] MEDS: HEPARIN SOD (PORCINE) 5000UNITS/ML 1ML VIAL/SYRINGE SC SCH ×2 (10:22→20:00)
[2020-09-30] MEDS: PERCOCET 5MG/325MG TAB PO PRN (10:51)
--- NOTE | 2020-09-30 12:14 | IPNPDOC ---
Subjective Date Seen The patient was seen on 09/30/20. Subjective Chief Complaint/HPI Mr. Wu is a 59 year old male transferred from [place] with diabetes mellitus who presents with peroneal pain and found to have peroneal abscess, epididymitis, and scrotal inflammation. Yesterday evening, urology evaluated patient. Recommend continuation of IV antibiotics and elevation. Otherwise, patient was afebrile overnight. This morning denies chest pain or dyspnea. Groin pain improved but still present. Still has scrotal erythema and swelling. There is extension from the left scrotum up towards his left groin. We'll continue to monitor Objective Physical Examination General Exam: Positive: Alert, Cooperative Eye Exam: Positive: EOMI ENT Exam: Positive: Atraumatic, Mucous membr. moist/pink, Pharynx Normal Neck Exam: Positive: Supple Chest Exam: Positive: Clear to auscultation Heart Exam: Positive: Rate Normal, Regular Rhythm Abdomen Exam: Positive: Normal bowel sounds, Soft; Negative: Tenderness Male Exam: Positive: Edema (Scrotal), Erythema (Scrotal) Extremity Exam: Negative: Edema Neuro Exam: Positive: Normal Speech Psych Exam: Positive: Mental status NL, Mood NL Assessment /Plan Assessment Mr. Wu is a 59 year old male transferred from [place] with diabetes mellitus who presents with peroneal pain and found to have peroneal abscess. US scrotal demonstrated abscess inferior and left lateral to the scrotum measuring 8.9 x 3.4 x 2.7 cm. Patient was taken to the OR the evening of 09/28/[address] Noriega. Drained large amount of pus. No culture was obtained. Otherwise, still have scrotal swelling, erythema, and tenderness. There is also some extension from the left scrotum up to the left groin. Urology consulted, recommendations appreciated. Continues on ciprofloxacin and metronidazole. Plan/VTE VTE Prophylaxis Ordered?: Yes Plan 1. Peroneal abscess -Inferior and left lateral to the scrotum measuring 8.9 x 3.4 x 2.7 cm -General surgery following, recommendations appreciated -Taken down to the OR on 09/28/2020 for I&D. Drained pus, no culture taken -MRSA negative. On ciprofloxacin and metronidazole 2. Scrotal inflammation and epididymitis -MRSA negative -Continues on ciprofloxacin and metronidazole -Urology consulted, recommendations appreciated -Continue antibiotics and elevation 3. Alcohol use disorder -CIWA with PRN lorazepam -Continue multivitamin, thiamine, and folic acid 4. Diabetes mellitus -Hold metformin -Sliding scale insulin -Resume carbohydrate consistent diet after surgery 5. DVT ppx -Heparin subcutaneous Disposition: Pending clinical improvement VS, I&O, 24H, Fishbone Vital Signs/I&O Vital Signs Date Time Temp Pulse Resp B/P (MAP) Pulse Ox O2 Delivery O2 Flow Rate FiO2 09/30/20 10:51 16 Room Air 09/30/20 08:21 98.2 60 134/68 (90) 99 09/29/20 14:00 I&O- Last 24 Hours up to 6 AM 09/30/20 06:00 Intake Total 1120 ml Output Total 1345 ml Balance -225 ml Laboratory Data 24H LABS Laboratory Tests 2 09/29/20 16:33: Bedside Glucose (Misc Panel) 169H 09/29/20 20:14: Bedside Glucose (Misc Panel) 171H 09/30/20 05:49: Nucleated Red Blood Cells % (auto) 0.0, Anion Gap 7L, Glomerular Filtration Rate > 60.0, Calcium Level 8.3L 09/30/20 11:42: Bedside Glucose (Misc Panel) 190H CBC/BMP Laboratory Tests 09/30/20 05:49 Microbiology Microbiology 09/26/20 Blood Culture - Preliminary, Resulted No Growth after 72 hours. All specime... 09/26/20 Gastrointestinal Tract Panel (PCR) - Final, Complete 09/25/20 Blood Culture - Preliminary, Resulted No Growth after 72 hours. All specime... 09/25/20 Blood Culture - Preliminary, Resulted No Growth after 72 hours. All specime... TAYLOR CANTRELL DO Sep 30, 2020 12:14
[2020-09-30 14:00] VITALS: BP 137/73
[2020-09-30 22:00] VITALS: BP 147/78
[2020-10-01] MEDS: metroNIDAZOLE 500 MG in IV 1 EA IV SCH (03:09)
[2020-10-01] MEDS: CIPROFLOXACIN 400 MG in IV 1 EA IV SCH (04:26)
[2020-10-01 06:00] VITALS: BP 152/91
[2020-10-01 06:50] LABS: HEMOGLOBIN 13.4 g/dl (13.5-17.5); MEAN CORPUSCULAR HEMOGLOBIN 32.8 pg (27.0-33.0); MEAN CORPUSCULAR HGB CONC 34.4 g/dl (32.0-36.5); MEAN CORPUSCULAR VOLUME 95.4 fl (80.0-96.0); PLATELET COUNT, AUTOMATED 280 10^3/uL (150-450); RED BLOOD COUNT 4.09 10^6/uL (4.30-6.10); WHITE BLOOD COUNT 8.4 10^3/uL (4.0-10.0)
[2020-10-01 07:12] LABS: BLOOD UREA NITROGEN 6 MG/DL (7-18); CARBON DIOXIDE LEVEL 29 MEQ/L (21-32); CHLORIDE LEVEL 102 MEQ/L (98-107); CREATININE FOR GFR 0.56 MG/DL (0.70-1.30); GLOMERULAR FILTRATION RATE > 60.0 (>49); GLUCOSE, FASTING 194 MG/DL (70-100); POTASSIUM SERUM 3.8 MEQ/L (3.5-5.1); SODIUM LEVEL 137 MEQ/L (136-145)
[2020-10-01] MEDS: HumaLOG INSULIN (NovoLOG) PER UNIT SC SCH ×4 (07:53→21:00)
[2020-10-01] MEDS: MULTIVITAMINS/MINERALS THERAP 1 TAB PO SCH (07:53)
[2020-10-01] MEDS: FOLIC ACID 1 MG TAB PO SCH (07:53)
[2020-10-01] MEDS: HEPARIN SOD (PORCINE) 5000UNITS/ML 1ML VIAL/SYRINGE SC SCH ×2 (07:54→21:24)
[2020-10-01] MEDS: LACTOBACILLUS ACIDOPHILUS CAP (BACID) PO SCH ×2 (08:32→17:21)
--- NOTE | 2020-10-01 09:48 | IPNPDOC ---
Subjective Date Seen The patient was seen on 10/01/20. Subjective Chief Complaint/HPI Mr. Wu is a 59 year old male transferred from [place] with diabetes mellitus who presents with peroneal pain and found to have peroneal abscess, epididymitis, and scrotal inflammation. No events overnight. Denies chest pain or dyspnea. Groin pain improving, but still present. Left scrotum still enlarged and tender with extension of erythema caudally. Objective Physical Examination General Exam: Positive: Alert, Cooperative Eye Exam: Positive: EOMI ENT Exam: Positive: Atraumatic, Mucous membr. moist/pink, Pharynx Normal Neck Exam: Positive: Supple Chest Exam: Positive: Clear to auscultation Heart Exam: Positive: Rate Normal, Regular Rhythm Abdomen Exam: Positive: Normal bowel sounds, Soft; Negative: Tenderness Male Exam: Positive: Edema (Scrotal), Erythema (Scrotal) Extremity Exam: Negative: Edema Neuro Exam: Positive: Normal Speech Psych Exam: Positive: Mental status NL, Mood NL Assessment /Plan Assessment Mr. Wu is a 59 year old male transferred from [place] with diabetes mellitus who presents with peroneal pain and found to have peroneal abscess. US scrotal demonstrated abscess inferior and left lateral to the scrotum measuring 8.9 x 3.4 x 2.7 cm. Patient was taken to the OR the evening of 09/28/[address] Noriega. Drained large amount of pus. No culture was obtained. Otherwise, still have scrotal swelling, erythema, and tenderness. There is also some extension from the left scrotum up to the left groin. Urology consulted, recommendations appreciated. Continues on ciprofloxacin and metronidazole. Today will order US scrotum to look for testicular viability Plan/VTE VTE Prophylaxis Ordered?: Yes Plan 1. Peroneal abscess -Inferior and left lateral to the scrotum measuring 8.9 x 3.4 x 2.7 cm -General surgery following, recommendations appreciated -Taken down to the OR on 09/28/2020 for I&D. Drained pus, no culture taken -Leukocytosis resolved -MRSA negative. On ciprofloxacin and metronidazole 2. Scrotal inflammation and epididymitis -MRSA negative -Continues on ciprofloxacin and metronidazole -Urology consulted, recommendations appreciated -Continue antibiotics and elevation -Repeat US scrotum for testicular viability 3. Alcohol use disorder -CIWA with PRN lorazepam -Continue multivitamin, thiamine, and folic acid 4. Diabetes mellitus -Hold metformin -Sliding scale insulin -Resume carbohydrate consistent diet after surgery 5. DVT ppx -Heparin subcutaneous Disposition: Pending clinical improvement. Still has left testicle swelling and tenderness with erythema extending up to groin. VS, I&O, 24H, Fishbone Vital Signs/I&O Vital Signs Date Time Temp Pulse Resp B/P (MAP) Pulse Ox O2 Delivery O2 Flow Rate FiO2 10/01/20 06:00 98.0 61 18 152/91 (111) 96 Room Air 09/29/20 14:00 I&O- Last 24 Hours up to 6 AM 10/01/20 06:00 Intake Total 1650 ml Output Total 1750 ml Balance -100 ml Laboratory Data 24H LABS Laboratory Tests 2 09/30/20 11:42: Bedside Glucose (Misc Panel) 190H 09/30/20 16:46: Bedside Glucose (Misc Panel) 168H 09/30/20 20:03: Bedside Glucose (Misc Panel) 171H 10/01/20 06:26: Nucleated Red Blood Cells % (auto) 0.0, Anion Gap 6L, Glomerular Filtration Rate > 60.0, Calcium Level 8.0L 10/01/20 07:43: Bedside Glucose (Misc Panel) 186H CBC/BMP Laboratory Tests 10/01/20 06:26 Microbiology Microbiology 09/26/20 Blood Culture - Preliminary, Resulted No Growth after 72 hours. All specime... 09/26/20 Gastrointestinal Tract Panel (PCR) - Final, Complete 09/25/20 Blood Culture - Final, Complete NO GROWTH AFTER 5 DAYS 09/25/20 Blood Culture - Final, Complete NO GROWTH AFTER 5 DAYS TAYLOR CANTRELL DO Oct 01, 2020 09:48
[2020-10-01 14:00] VITALS: BP 155/85
[2020-10-01] MEDS: metroNIDAZOLE (FLAGYL) 500MG TABLET PO SCH ×2 (15:46→21:24)
--- NOTE | 2020-10-01 16:34 | REP ---
INDICATION: Scrotal inflammation, Testicular viability. COMPARISON: 09/28/2020. TECHNIQUE: Real-time sonographic evaluation of scrotum and contents performed. FINDINGS: Testicles are normal in size and echotexture, right testicle measuring 4.3 x 1.8 x 2.5 cm and left testicle 4.0 x 2.0 x 2.4 cm. There is no testicular mass or torsion, blood flow is seen in each testicle blood with duplex Doppler evaluation. Tiny cyst in the head of the epididymis is unchanged. Left spermatic cord is less echogenic than on the prior study and persistent wall thickening of the left scrotum is again noted. IMPRESSION: No testicular torsion bilaterally. Left spermatic cord is less echogenic than on the prior study. Left scrotal wall thickening is again noted. <Electronically signed by Carlos Manuel Kothari > 10/01/20 [id number]
[2020-10-01] MEDS: CIPROFLOXACIN 500MG TABLET PO SCH (17:21)
[2020-10-01 22:00] VITALS: BP 148/82
[2020-10-02] MEDS: CIPROFLOXACIN 500MG TABLET PO SCH ×2 (05:47→18:40)
[2020-10-02] MEDS: metroNIDAZOLE (FLAGYL) 500MG TABLET PO SCH ×3 (05:47→22:16)
[2020-10-02 06:00] VITALS: BP 152/77
[2020-10-02 06:07] LABS: HEMOGLOBIN 13.5 g/dl (13.5-17.5); MEAN CORPUSCULAR HGB CONC 33.8 g/dl (32.0-36.5); MEAN CORPUSCULAR VOLUME 94.8 fl (80.0-96.0); PLATELET COUNT, AUTOMATED 306 10^3/uL (150-450); RED BLOOD COUNT 4.22 10^6/uL (4.30-6.10); WHITE BLOOD COUNT 9.8 10^3/uL (4.0-10.0)
[2020-10-02 06:28] LABS: BLOOD UREA NITROGEN 5 MG/DL (7-18); CALCIUM LEVEL 8.6 MG/DL (8.8-10.2); CARBON DIOXIDE LEVEL 28 MEQ/L (21-32); CHLORIDE LEVEL 105 MEQ/L (98-107); CREATININE FOR GFR 0.66 MG/DL (0.70-1.30); GLOMERULAR FILTRATION RATE > 60.0 (>49); GLUCOSE, FASTING 169 MG/DL (70-100); POTASSIUM SERUM 3.5 MEQ/L (3.5-5.1); SODIUM LEVEL 139 MEQ/L (136-145)
[2020-10-02] MEDS: HEPARIN SOD (PORCINE) 5000UNITS/ML 1ML VIAL/SYRINGE SC SCH ×2 (08:42→22:16)
[2020-10-02] MEDS: FOLIC ACID 1 MG TAB PO SCH (08:42)
[2020-10-02] MEDS: LACTOBACILLUS ACIDOPHILUS CAP (BACID) PO SCH ×2 (08:42→18:40)
[2020-10-02] MEDS: MULTIVITAMINS/MINERALS THERAP 1 TAB PO SCH (08:42)
[2020-10-02] MEDS: HumaLOG INSULIN (NovoLOG) PER UNIT SC SCH ×4 (08:43→21:00)
--- NOTE | 2020-10-02 10:47 | IPNPDOC ---
Subjective Date Seen The patient was seen on 10/02/20. Subjective Chief Complaint/HPI Mr. Wu is a 59 year old male transferred from [place] with diabetes mellitus who presents with peroneal pain and found to have peroneal abscess, epididymitis, and scrotal inflammation. Yesterday, repeated scrotal US. Still has scrotal thickening, but spermatic cord is less inflamed. This morning, denies chest pain or dyspnea. Erythema and swelling improved, but spray machine tender. Objective Physical Examination General Exam: Positive: Alert, Cooperative Eye Exam: Positive: EOMI ENT Exam: Positive: Atraumatic, Mucous membr. moist/pink, Pharynx Normal Neck Exam: Positive: Supple Chest Exam: Positive: Clear to auscultation Heart Exam: Positive: Rate Normal, Regular Rhythm Abdomen Exam: Positive: Normal bowel sounds, Soft; Negative: Tenderness Male Exam: Positive: Edema (Scrotal), Erythema (Scrotal) Extremity Exam: Negative: Edema Neuro Exam: Positive: Normal Speech Psych Exam: Positive: Mental status NL, Mood NL Assessment /Plan Assessment Mr. Wu is a 59 year old male transferred from [place] with diabetes mellitus who presents with peroneal pain and found to have peroneal abscess. US scrotal demonstrated abscess inferior and left lateral to the scrotum measuring 8.9 x 3.4 x 2.7 cm. Patient was taken to the OR the evening of 09/28/[address] Noriega. Drained large amount of pus. No culture was obtained. Otherwise, still have scrotal swelling, erythema, and tenderness. There is also some extension from the left scrotum up to the left groin. Urology consulted, recommendations appreciated. Continues on ciprofloxacin and metronidazole. Plan/VTE VTE Prophylaxis Ordered?: Yes Plan 1. Peroneal abscess -Inferior and left lateral to the scrotum measuring 8.9 x 3.4 x 2.7 cm -General surgery following, recommendations appreciated -Taken down to the OR on 09/28/2020 for I&D. Drained pus, no culture taken -Leukocytosis resolved -MRSA negative. On ciprofloxacin and metronidazole 2. Scrotal inflammation and epididymitis -MRSA negative -Continues on ciprofloxacin and metronidazole -Urology consulted, recommendations appreciated -Continue antibiotics and elevation 3. Alcohol use disorder -CIWA with PRN lorazepam -Continue multivitamin, thiamine, and folic acid 4. Diabetes mellitus -Hold metformin -Sliding scale insulin -Resume carbohydrate consistent diet after surgery 5. DVT ppx -Heparin subcutaneous Disposition: Pending clinical improvement. Still has left testicle swelling and tenderness with erythema extending up to groin. VS, I&O, 24H, Fishbone Vital Signs/I&O Vital Signs Date Time Temp Pulse Resp B/P (MAP) Pulse Ox O2 Delivery O2 Flow Rate FiO2 10/02/20 06:00 97.4 58 17 152/77 (102) 98 Room Air 09/29/20 14:00 I&O- Last 24 Hours up to 6 AM 10/02/20 06:00 Intake Total 1120 ml Output Total 1385 ml Balance -265 ml Laboratory Data 24H LABS Laboratory Tests 2 10/01/20 11:37: Bedside Glucose (Misc Panel) 223H 10/01/20 17:11: Bedside Glucose (Misc Panel) 153H 10/01/20 20:52: Bedside Glucose (Misc Panel) 162H 10/02/20 05:37: Nucleated Red Blood Cells % (auto) 0.0, Anion Gap 6L, Glomerular Filtration Rate > 60.0, Calcium Level 8.6L CBC/BMP Laboratory Tests 10/02/20 05:37 Microbiology Microbiology 09/26/20 Blood Culture - Final, Complete NO GROWTH AFTER 5 DAYS 09/26/20 Gastrointestinal Tract Panel (PCR) - Final, Complete 09/25/20 Blood Culture - Final, Complete NO GROWTH AFTER 5 DAYS 09/25/20 Blood Culture - Final, Complete NO GROWTH AFTER 5 DAYS TAYLOR CANTRELL DO Oct 02, 2020 10:47
--- NOTE | 2020-10-02 12:18 | IPNPDOC ---
Subjective Review oF Systems Chief Complaint The patient is a 59-year-old male admitted with a reason for visit of Perianal Abscess. General: Reports: Normal Appetite; Denies: ROS Unobtainable, Chills, Night Sweats, Fatigue, Malaise, Other Symptoms Constitutional: Denies: Fever, Chills, Sweats, Weakness, Malaise Eyes: Denies: Pain, Vision change ENT: Denies: Head Aches, Sore Throat, Epistaxis Skin: Denies: Rash, Lesions, Breakdown, Nail Changes Pulmonary: Denies: Dyspnea, Cough Cardiovascular: Denies Chest Pain, Denies Palpitations Gastrointestinal: Denies: Nausea, Vomiting, Abdominal Pain Genitourinary: Denies: Dysuria, Frequency, Incontinence, Hematuria Hematologic: Denies: Bruising, Bleeding Excessively Endocrine: Denies: Polydipsia, Polyphagia, Polyuria Musculoskeletal: Denies: Neck Pain, Back Pain Neurological: Denies: Weakness, Numbness, Incoordination, Change in Speech Psych: Reports: Mood Normal; Denies: Anxiety, Depression Objective Physical Examination Eye Exam: PERRLA, Conjunctiva & lids normal, EOMI; No: Sclera icteric Heart Exam: Positive: Rate Normal, Regular Rhythm ABDOMEN EXAM: Normal bowel sounds, Soft; No: Tenderness, Hepatospenomegaly Male Exam: Erythema (Scrotum is much less edematous and swollen. Testicular cord is piece dyeing machine tender and indurated. Testicle improved.) Vital Signs/I&O Vital Signs Date Time Temp Pulse Resp B/P (MAP) Pulse Ox O2 Delivery O2 Flow Rate FiO2 10/02/20 06:00 97.4 58 17 152/77 (102) 98 Room Air 09/29/20 14:00 I&O- Last 24 Hours up to 6 AM 10/02/20 06:00 Intake Total 1120 ml Output Total 1385 ml Balance -265 ml Laboratory Data Labs 24H Laboratory Tests 2 10/01/20 17:11: Bedside Glucose (Misc Panel) 153H 10/01/20 20:52: Bedside Glucose (Misc Panel) 162H 10/02/20 05:37: Nucleated Red Blood Cells % (auto) 0.0, Anion Gap 6L, Glomerular Filtration Rate > 60.0, Calcium Level 8.6L 10/02/20 11:29: Bedside Glucose (Misc Panel) 275H CBC/BMP Laboratory Tests 10/02/20 05:37 FSBS Laboratory Tests Test 10/01/20 17:11 10/01/20 20:52 10/02/20 11:29 Range/Units Bedside Glucose (Misc Panel) 153 162 275 80-115 MG/DL Microbiology Microbiology 09/26/20 Blood Culture - Final, Complete NO GROWTH AFTER 5 DAYS 09/26/20 Gastrointestinal Tract Panel (PCR) - Final, Complete 09/25/20 Blood Culture - Final, Complete NO GROWTH AFTER 5 DAYS 09/25/20 Blood Culture - Final, Complete NO GROWTH AFTER 5 DAYS Assessment/Plan Date Seen The patient was seen on 10/02/20. Plan/VTE VTE Prophylaxis Ordered?: Yes Plan Continue antibiotics and monitor improvement in left spermatic cord and scrotal inflammation. Erythema is improving and hopefully this will continue to improve. If not, he may need to be considered for orchiectomy, but this decision will not be made for a while yet. MERLE LUQUE MD Oct 02, 2020 12:18
[2020-10-02 14:00] VITALS: BP 151/75
[2020-10-02 22:00] VITALS: BP 148/74
[2020-10-03] MEDS: CIPROFLOXACIN 500MG TABLET PO SCH (05:51)
[2020-10-03] MEDS: metroNIDAZOLE (FLAGYL) 500MG TABLET PO SCH ×2 (05:51→13:58)
[2020-10-03 06:00] VITALS: BP 147/74
[2020-10-03 06:02] LABS: HEMOGLOBIN 13.7 g/dl (13.5-17.5); MEAN CORPUSCULAR HEMOGLOBIN 32.1 pg (27.0-33.0); MEAN CORPUSCULAR HGB CONC 33.4 g/dl (32.0-36.5); PLATELET COUNT, AUTOMATED 342 10^3/uL (150-450); RED BLOOD COUNT 4.27 10^6/uL (4.30-6.10); WHITE BLOOD COUNT 9.5 10^3/uL (4.0-10.0)
[2020-10-03 06:26] LABS: BLOOD UREA NITROGEN 6 MG/DL (7-18); CALCIUM LEVEL 8.4 MG/DL (8.8-10.2); CARBON DIOXIDE LEVEL 29 MEQ/L (21-32); CHLORIDE LEVEL 105 MEQ/L (98-107); CREATININE FOR GFR 0.69 MG/DL (0.70-1.30); GLOMERULAR FILTRATION RATE > 60.0 (>49); GLUCOSE, FASTING 194 MG/DL (70-100); POTASSIUM SERUM 3.4 MEQ/L (3.5-5.1); SODIUM LEVEL 137 MEQ/L (136-145)
[2020-10-03] MEDS ORDERED: POTASSIUM CHLORIDE 10 MEQ SR TABLET PO ONE (07:20)
[2020-10-03 07:43] LABS: MAGNESIUM LEVEL 2.1 MG/DL (1.8-2.4)
--- NOTE | 2020-10-03 07:57 | IPNPDOC ---
Subjective Review oF Systems Chief Complaint The patient is a 59-year-old male admitted with a reason for visit of Perianal Abscess. General: Reports: Normal Appetite; Denies: Fatigue, Malaise Constitutional: Denies: Fever, Chills, Sweats, Weakness, Malaise Eyes: Denies: Pain, Vision change ENT: Denies: Head Aches, Sore Throat, Epistaxis Skin: Denies: Rash, Lesions, Breakdown, Nail Changes Pulmonary: Denies: Dyspnea, Cough Cardiovascular: Denies Chest Pain, Denies Palpitations Gastrointestinal: Denies: Nausea, Vomiting, Abdominal Pain Genitourinary: Denies: Dysuria, Frequency, Incontinence, Hematuria Hematologic: Denies: Bruising, Bleeding Excessively Endocrine: Denies: Polydipsia, Polyphagia, Polyuria Musculoskeletal: Denies: Neck Pain, Back Pain Objective Physical Examination General Exam: Alert, No Acute Distress Eye Exam: PERRLA, Conjunctiva & lids normal, EOMI; No: Sclera icteric Heart Exam: Positive: Rate Normal, Regular Rhythm ABDOMEN EXAM: Normal bowel sounds, Soft; No: Tenderness, Hepatospenomegaly Male Exam: Erythema (Scrotum is much less edematous and swollen. Testicular cord is label fuser tender and indurated. Testicle improved.) Vital Signs/I&O Vital Signs Date Time Temp Pulse Resp B/P (MAP) Pulse Ox O2 Delivery O2 Flow Rate FiO2 10/03/20 06:00 97.6 54 17 147/74 (98) 96 Room Air 09/29/20 14:00 I&O- Last 24 Hours up to 6 AM 10/03/20 06:00 Intake Total 1500 ml Output Total 1100 ml Balance 400 ml Laboratory Data Labs 24H Laboratory Tests 2 10/02/20 11:29: Bedside Glucose (Misc Panel) 275H 10/02/20 16:39: Bedside Glucose (Misc Panel) 133H 10/02/20 20:42: Bedside Glucose (Misc Panel) 168H 10/03/20 05:23: Nucleated Red Blood Cells % (auto) 0.0, Anion Gap 3L, Glomerular Filtration Rate > 60.0, Calcium Level 8.4L, Magnesium Level 2.1 CBC/BMP Laboratory Tests 10/03/20 05:23 FSBS Laboratory Tests Test 10/02/20 11:29 10/02/20 16:39 10/02/20 20:42 Range/Units Bedside Glucose (Misc Panel) 275 133 168 80-115 MG/DL Microbiology Microbiology 09/26/20 Blood Culture - Final, Complete NO GROWTH AFTER 5 DAYS 09/26/20 Gastrointestinal Tract Panel (PCR) - Final, Complete 09/25/20 Blood Culture - Final, Complete NO GROWTH AFTER 5 DAYS 09/25/20 Blood Culture - Final, Complete NO GROWTH AFTER 5 DAYS Assessment/Plan Date Seen The patient was seen on 10/03/20. Patient Summary The patient's scrotal and spermatic cord inflammation have dramatically improved over the last 24-48 hours. Plan to continue antibiotics. Patient should be able to go home and another 1-2 days with oral antibiotics and follow-up in the clinic in 1 week. Plan/VTE VTE Prophylaxis Ordered?: Yes Plan Patient will be discharged home in 1-2 days with oral antibiotics and follow-up in the clinic in 1014 days. MERLE LUQUE MD Oct 03, 2020 07:56
[2020-10-03] MEDS: HEPARIN SOD (PORCINE) 5000UNITS/ML 1ML VIAL/SYRINGE SC SCH (08:05)
[2020-10-03] MEDS: FOLIC ACID 1 MG TAB PO SCH (08:05)
[2020-10-03] MEDS: HumaLOG INSULIN (NovoLOG) PER UNIT SC SCH ×2 (08:05→11:51)
[2020-10-03] MEDS: MULTIVITAMINS/MINERALS THERAP 1 TAB PO SCH (08:05)
[2020-10-03] MEDS: LACTOBACILLUS ACIDOPHILUS CAP (BACID) PO SCH (08:05)
[2020-10-03] MEDS ORDERED: CIPR-249 PO (10:30)
[2020-10-03] MEDS ORDERED: FLAG500T PO (10:30)
--- NOTE | 2020-10-03 22:43 | DS.PDOC ---
Discharge Summary General Date of Admission Sep 25, 2020 at 15:56 Date of Discharge Oct 03, 2020 Attending Physician: TAYLOR CANTRELL DO Specialist/Consultants [facility] General surgery, Dr. Noriega Urology, Dr. Simental Discharge Summary PROCEDURES PERFORMED DURING STAY: 1. Bedside incision and drainage of perianal abscess on 09/26/2020 2. OR incision and drainage of perianal abscess on 09/28/2020 ADMITTING DIAGNOSES: 1. Peroneal abscess 2. Lactic acidosis 3. Diabetes mellitus 4. Alcohol use disorder 5. Scrotal inflammation and epididymitis DISCHARGE DIAGNOSES: 1. Peroneal abscess 2. Lactic acidosis 3. Diabetes mellitus 4. Alcohol use disorder 5. Scrotal inflammation and epididymitis COMPLICATIONS/CHIEF COMPLAINT: Peroneal Abscess. HISTORY OF PRESENT ILLNESS: Mr. Wu is a 59 year old male who was transferred from [facility] for anal pain. He initially presented to [place] ED the day prior to transfer and had a CT which demonstrated a 1.2cm left perianal/peroneal abscess. At that time, patient declined admission and was sent home with PO Clindamycin. Patient continued to worsen and he returned to [place] ED. While there, he had lactic acidosis of 6.1 and WBC of 12.7. [facility] requested transfer of patient for surgical evaluation and spoke with Dr. Noriega. Patient was admitted for peroneal abscess. HOSPITAL COURSE: Bedside incision and drainage was attempted, but was not able to drain abscess. Patient had an US scrotum to evaluate scrotal swelling, edema and pain. He was found to have 8.9 x 3.4 x 2.7 cm abscess. General surgery took patient down to the OR for better visualization and was able to drain the abscess. No cultures were obtained. Otherwise, patient was continued on antibiotics, but still had red, swollen, and tender scrotum. Urology was consulted, and they evaluated patient. Patient had left epididymitis and recommended continued antibiotics and scrotal elevation. Patient's swelling and tenderness improved slowly. Repeat imaging demonstrated improvement in the inflammation. Today, patient was feeling better and was able to ambulate. He felt ready for home and was subsequently discharged home with PO antibiotics. DISCHARGE MEDICATIONS: Please see below. ALLERGIES: Please see below. PHYSICAL EXAMINATION ON DISCHARGE: VITAL SIGNS: Please see below. GENERAL: Comfortable, in no apparent distress HEENT: Head normocephalic, atraumatic NECK: Supple CARDIOVASCULAR EXAMINATION: Regular rate and rhythm RESPIRATORY EXAMINATION: Lungs clear to auscultation bilaterally ABDOMINAL EXAMINATION: Soft, non-tender, normal bowel sounds UROGENITAL: Scrotum erythema has improved and looks improved and less swollen. There is extension into left groin but has receded compared to prior. EXTREMITIES: Bilateral pitting edema SKIN: Warm and dry NEUROLOGICAL EXAMINATION: CN 3-12 grossly intact PSYCHIATRIC EXAMINATION: Normal mood and affect LABORATORY DATA: Please see below. IMAGING: Radiologist interpretation Scrotal US on 09/28/2020 Peroneal abscess inferior and left lateral to the scrotum measuring 8.9 x 3.4 x 2.7 cm.. No intrascrotal abscess or abnormal fluid collection seen. No intratesticular mass seen. Scrotal US on 10/01/2020 No testicular torsion bilaterally. Left spermatic cord is less echogenic than on the prior study. Left scrotal wall thickening is again noted. PROGNOSIS: Good ACTIVITY: As tolerated. DIET: Carbohydrate consistent diet DISCHARGE PLAN: Home DISPOSITION: Home, Self-Care. DISCHARGE INSTRUCTIONS: 1. Follow up with PCP within 1 week 2. Follow up with urology within 1 week 3. Complete antibiotic course of ciprofloxacin and metronidazole. Don't drink alcohol while on antibiotics DISCHARGE CONDITION: Stable. Total time spent on discharge planning, discharge summary, and medication reconciliation: 55 minutes Vital Signs/I&Os Vital Signs Date Time Temp Pulse Resp B/P (MAP) Pulse Ox O2 Delivery O2 Flow Rate FiO2 10/03/20 06:00 97.6 54 17 147/74 (98) 96 Room Air 09/29/20 14:00 I&O- Last 24 Hours up to 6 AM 10/03/20 06:00 Intake Total 1500 ml Output Total 1100 ml Balance 400 ml Laboratory Data Labs 24H Laboratory Tests 2 10/03/20 05:23: Nucleated Red Blood Cells % (auto) 0.0, Anion Gap 3L, Glomerular Filtration Rate > 60.0, Calcium Level 8.4L, Magnesium Level 2.1 10/03/20 11:28: Bedside Glucose (Misc Panel) 211H CBC/BMP Laboratory Tests 10/03/20 05:23 FSBS Laboratory Tests Test 10/03/20 11:28 Range/Units Bedside Glucose (Misc Panel) 211 80-115 MG/DL Microbiology Microbiology 09/26/20 Blood Culture - Final, Complete NO GROWTH AFTER 5 DAYS 09/26/20 Gastrointestinal Tract Panel (PCR) - Final, Complete 09/25/20 Blood Culture - Final, Complete NO GROWTH AFTER 5 DAYS 09/25/20 Blood Culture - Final, Complete NO GROWTH AFTER 5 DAYS Discharge Medications Scheduled Ciprofloxacin HCl (Cipro) 500 Mg Tablet, 500 MG PO BID@,18 Metformin HCl (Metformin HCl) 500 Mg Tablet, 500 MG PO BID, (Reported) Metronidazole (Flagyl) 500 Mg Tablet, 500 MG PO Q8H Allergies Coded Allergies: Penicillins (Verified Allergy, Unknown, CHILDHOOD PENICILLIN ALLERGY, 09/25/20) aspirin (Verified Adverse Reaction, Unknown, HIVES, 09/25/20) TAYLOR CANTRELL DO Oct 03, 2020 22:43
== END 2020-10-03 14:43 | disposition home or self-care (01) | DRG 254 ==
LOC: M MSPAV 15:56
PROVIDERS: ADMIT Internal Medicine; ATTEND Internal Medicine
PROC: 0W9M0ZZ Drainage of Male Perineum, Open Approach (ICD-10-PCS; 2020-09-26)
PROC: 0W9M0ZZ Drainage of Male Perineum, Open Approach (ICD-10-PCS; principal; 2020-09-28 16:00)
DX: K61.0 Anal abscess (principal); E87.2 Acidosis; L02.215 Cutaneous abscess of perineum; E11.9 Type 2 diabetes mellitus without complications; N45.1 Epididymitis; F10.239 Alcohol dependence with withdrawal, unspecified; F17.200 Nicotine dependence, unspecified, uncomplicated; Z79.84 Long term (current) use of oral hypoglycemic drugs

== ENCOUNTER → 2021-02-17 | Outpatient (CLI) | payer BC ==
[~2021-02-17] MED LIST: ATOR1TAB21 PO; CIPR-249 PO; CLIN300C6 PO; FLAG500T PO; JARD1TAB PO; LISI-898 PO; LOPE1CAP5 PO; METF500T13 PO
== END ==
LOC: M LABSMTC 13:12
PROVIDERS: ATTEND Anesthesiology
DX: Z01.818 Encounter for other preprocedural examination (principal)

== ENCOUNTER 2021-02-22 07:49 | Day surgery (SDC) | payer BC ==
[~2021-02-22] VITALS: Ht 175.3 cm; Wt 68.0 kg
[~2021-02-22 07:49] MED LIST changes: +LIDOCAINE 2% 100MG/5ML SDV (FOR ANES.) As Ordered ONE; +NS 1,000 ML IV ONE; +propofoL 200 MG/20 ML VIAL As Ordered ONE
--- NOTE | 2021-02-22 09:28 | ROOR ---
Patient Name: Tree Wu Procedure Date: 02/22/2021 8:48 AM Date of : 1960 Age: 60 Room: [facility] Gender: Male Note Status: Finalized Procedure: Colonoscopy Indications: Screening for colorectal malignant neoplasm Providers: Micheal Jamil MD Referring MD: Venus SALINAS MD Requesting Provider: Medicines: Monitored Anesthesia Care Complications: No immediate complications. Procedure: Pre-Anesthesia Assessment: - Prior to the procedure, a History and Physical was performed, and patient medications and allergies were reviewed. The patient is competent. The risks and benefits of the procedure and the sedation options and risks were discussed with the patient. All questions were answered and informed consent was obtained. Patient identification and proposed procedure were verified by the physician, the nurse and the anesthesiologist in the procedure room. Mental Status Examination: alert and oriented. Airway Examination: normal oropharyngeal airway and neck mobility. Respiratory Examination: clear to auscultation. CV Examination: normal. Prophylactic Antibiotics: The patient does not require prophylactic antibiotics. Prior Anticoagulants: The patient has taken no previous anticoagulant or antiplatelet agents. ASA Grade Assessment: II - A patient with mild systemic disease. After reviewing the risks and benefits, the patient was deemed in satisfactory condition to undergo the procedure. The anesthesia plan was to use monitored anesthesia care (MAC). Immediately prior to administration of medications, the patient was re-assessed for adequacy to receive sedatives. The heart rate, respiratory rate, oxygen saturations, blood pressure, adequacy of pulmonary ventilation, and response to care were monitored throughout the procedure. The physical status of the patient was re-assessed after the procedure. The Colonoscope was introduced through the anus and advanced to the terminal ileum, with identification of the appendiceal orifice and IC valve. The colonoscopy was performed without difficulty. The patient tolerated the procedure well. The quality of the bowel preparation was good. The terminal ileum, ileocecal valve, appendiceal orifice, and rectum were photographed. Scope insertion time was 2 minutes. Scope withdrawal time was 9 minutes. The total duration of the procedure was 12 minutes. Findings: The perianal and digital rectal examinations were normal. The terminal ileum appeared normal. An area of mildly congested mucosa was found in the sigmoid colon and in the descending colon. Biopsies for histology were taken with a cold forceps from the right colon, left colon, transverse colon and rectosigmoid colon for evaluation of microscopic colitis. Verification of patient identification for the specimen was done by the physician and nurse using the patient's name, date and medical record number. Estimated blood loss was minimal. A 6 mm polyp was found in the recto-sigmoid colon. The polyp was sessile. The polyp was removed with a cold biopsy forceps. Resection and retrieval were complete. Non-bleeding external and internal hemorrhoids were found during retroflexion. The hemorrhoids were medium-sized. Impression: - The examined portion of the ileum was normal. - Congested mucosa in the sigmoid colon and in the descending colon. Biopsied. - One 6 mm polyp at the recto-sigmoid colon, removed with a cold biopsy forceps. Resected and retrieved. - Non-bleeding external and internal hemorrhoids. Recommendation: - Patient has a contact number available for emergencies. The signs and symptoms of potential delayed complications were discussed with the patient. Return to normal activities tomorrow. Written discharge instructions were provided to the patient. - High fiber diet. - Continue present medications. - Await pathology results. - Repeat colonoscopy in 5 years for surveillance based on pathology results. - Telephone GI clinic for pathology results in 2 weeks. - Return to GI clinic if persistent symptoms or new symptoms. - Return to primary care physician. Procedure Code(s): --- Professional --- 35537, Colonoscopy, flexible; with biopsy, single or multiple Diagnosis Code(s): --- Professional --- Z12.11, Encounter for screening for malignant neoplasm of colon K64.8, Other hemorrhoids K63.89, Other specified diseases of intestine K63.5, Polyp of colon CPT copyright 2019 [employer]. All rights reserved. The codes documented in this report are preliminary and upon program director cable television review may be revised to meet current compliance requirements. Micheal Jamil MD Micheal Jamil MD 02/22/2021 9:27:43 AM Electronically signed by Micheal Jamil MD Number of Addenda: 0 Note Initiated On: 02/22/2021 8:48 AM Estimated Blood Loss: Estimated blood loss was minimal.
[2021-02-22 09:35] VITALS: BP 160/77
== END 2021-02-22 09:41 | disposition home or self-care (01) ==
LOC: M OPP 07:49
PROVIDERS: ATTEND Internal Medicine Gastroenterology
DX: Z12.11 Encounter for screening for malignant neoplasm of colon (principal); Z80.0 Family history of malignant neoplasm of digestive organs; K63.5 Polyp of colon; K63.89 Other specified diseases of intestine; K64.8 Other hemorrhoids; Z79.84 Long term (current) use of oral hypoglycemic drugs; Z79.899 Other long term (current) drug therapy; Z88.0 Allergy status to penicillin; Z88.6 Allergy status to analgesic agent; F17.210 Nicotine dependence, cigarettes, uncomplicated

== ENCOUNTER → 2021-03-08 | Outpatient (REF) | payer BC ==
[~2021-03-08] MED LIST changes: -LIDOCAINE 2% 100MG/5ML SDV (FOR ANES.) As Ordered ONE; -NS 1,000 ML IV ONE; -propofoL 200 MG/20 ML VIAL As Ordered ONE
== END ==
LOC: M LAB REF 13:52
PROVIDERS: ATTEND Dermatology
DX: L90.5 Scar conditions and fibrosis of skin (principal)